=== PATIENT | female | born 1950 | race Asian ===

== ENCOUNTER 2018-07-21 21:24 | Inpatient (IN) | payer MEDICAID, SELFPAY ==
[2018-07-21] MEDS ORDERED: Nitroglycerin 100MG/250ML BOT 250 ML ONE (21:44)
[2018-07-21] MEDS ORDERED: Verapamil 5 MG/2 ML VIAL ONE (21:44)
[2018-07-21] MEDS ORDERED: Adenosine 6 MG/2 ML VIAL ONE (21:44)
[2018-07-21] MEDS ORDERED: Heparin 10,000 UNITS/1 ML VIAL ONE (21:44)
[2018-07-21] MEDS ORDERED: TICAGRELOR 90 MG TABLET ONE (22:18)
[2018-07-21] MEDS ORDERED: Clopidogrel Bisulfate 300 MG TAB ONE (22:18)
[2018-07-21] MEDS ORDERED: Fentanyl 100 MCG/2 ML VIAL ONE (22:18)
[2018-07-21] MEDS ORDERED: Heparin 0 ML ONE (22:25)
[2018-07-21] MEDS ORDERED: Nitroglycerin 0.4 MG TAB (25 Tab Bottle) SL PRN (22:30)
[2018-07-21] MEDS ORDERED: Sodium Chloride 0.9% 1,000 ML IV SCH (22:30)
[2018-07-21] MEDS ORDERED: Morphine 4 MG/ML VIAL SLOW IVP PRN (23:26)
[2018-07-21] MEDS ORDERED: Fentanyl 100 MCG/2 ML VIAL SLOW IVP SCH (23:30)
[2018-07-21] MEDS: Ondansetron PF 4 MG/2 ML Vial IVP PRN (23:32)
--- NOTE | 2018-07-21 23:54 | HP ---
CHIEF COMPLAINT: Chest pain. HISTORY OF PRESENT ILLNESS: Ms. Shepard is a 67-year-old [place] female, who comes to the [place] ER for chest pain. She had an EKG and was found to have inferior ST-elevation [place], so she was transferred emergently to the [facility] for intervention. She underwent emergent heart catheterization that showed an occluded left circumflex. This was opened and stented with a bare-metal stent. She had residual severe LAD disease. She speaks Andorran only. With the help of a cia agent, we were able to get history. She started having pain yesterday, but the pain really got worse this morning at 7:00 a.m. She has had pain all day until she presented this evening to the ER in [place]. She had nausea and vomited once before showing to the ER, but has not had any nausea since. Currently, she is still having chest pain about 7/10 before her intervention, much better now. She recently was seen by her PCP, who started her on insulin, had an allergic reaction, started swelling up on her face due to the insulin she thinks and this was stopped. Her sugar levels are high. PAST MEDICAL HISTORY: 1. Hypertension. 2. Hyperlipidemia. 3. Type 2 diabetes. PAST SURGICAL HISTORY: None. OUTPATIENT MEDICATIONS: Include; 1. Metformin 1000 mg p.o. b.i.d. 2. Glimepiride 8 mg a day. 3. Atorvastatin 40 mg at bedtime. 4. Azithromycin given to her recently for an upper respiratory infection. ALLERGIES: LANTUS. SOCIAL HISTORY: No alcohol, tobacco, or drugs. REVIEW OF SYSTEMS: Negative unless stated in the history of present illness. PHYSICAL EXAMINATION: VITAL SIGNS: Temperature 97.2, blood pressure 118/64, pulse 70, respiratory rate 18, and sat 98% on 2 L nasal cannula. GENERAL: Awake and alert. HEENT: Normocephalic and atraumatic. NECK: Supple. LUNGS: Clear. CARDIOVASCULAR: S1 and S2. No S3 or S4. No murmurs. ABDOMEN: Soft. Positive bowel sounds. EXTREMITIES: No edema. SKIN: Warm and dry. LABORATORY DATA: Laboratory work was reviewed. CBC with a white count of 14, hemoglobin of 12, hematocrit of 39, and platelet count of 248. Coags were unremarkable. Chemistry was reviewed. Her initial troponin was already at 10 with a CK-MB of 17. Her creatinine was 1.31 with GFR of 40, glucose was 391, sodium of 131, potassium of 4.2, chloride of 91, carbon dioxide of 17, anion gap of 27, BUN of 27, albumin of 3.8. EKG was reviewed, inferior elevations as well as anterolateral elevations with reciprocal depressions. Chest x-ray showed pulmonary venous engorgement suggestive of CHF. Small left pleural effusion. ASSESSMENT AND PLAN: 1. Acute inferior lateral ST-elevation myocardial infarction. 2. Type 2 diabetes. 3. Hyperlipidemia. 4. Hypertension. PLAN: 1. Status post bare-metal stent to a circumflex. Very small artery. She has residual LAD disease that will have to be treated, eventually may be able to treat it with stenting. 2. Dual-antiplatelet therapy with Plavix and aspirin for at least 1 month. 3. High dose statin. We will increase her Lipitor to 80 mg a day. 4. We will add TAMY inhibitor and beta blockers as blood pressure allows for next few days. 5. Bedrest and ambulation. 6. Pull the sheath once ACT is under 170. 7. We will admit to the ICU. 8. PPI for stress ulcer prophylaxis. 9. Full code. 10. Disposition, pending clinical evolution. Job ID: [id number]
[2018-07-22 00:05] LABS: Troponin I 14.706 ng/mL (< 0.028)
[2018-07-22 00:06] LABS: CKMB 26.7 ng/mL (0-6.6)
[2018-07-22 05:28] LABS: #Lymphocytes 1.1 thou/uL (1.20-3.40); #Monocytes 1.1 thou/uL (0.11-0.59); #Neutrophils 14.2 thou/uL (1.40-6.50); %Basophils 0.1 % (0.0-1.0); %Eosinophils 0.1 % (0.0-10.0); %Lymphocytes 6.7 % (21.0-51.0); %Monocytes 6.5 % (0.0-10.0); %Neutrophils 86.7 % (42.0-75.0); Hemoglobin 12.6 g/dL (12.0-16.0); Mean Corpuscular HGB CONC 32.8 g/dL (32.0-36.0); Mean Corpuscular Hemoglobin 29.8 pg (27.0-31.0); Mean Corpuscular Volume 90.7 fL (78.0-98.0); Mean Platelet Volume 8.7 fL (7.4-10.4); Platelet Count 261 thou/uL (130-400); RBC Distribution Width 11.8 % (11.5-14.5); Red Blood Cell (RBC) Count 4.23 mill/uL (4.20-5.40); White Blood Cell (WBC) Count 16.3 thou/uL (4.8-10.8)
[2018-07-22 05:49] LABS: ALT (SGPT) 20 U/L (8-55); AST (SGOT) 75 U/L (5-34); Albumin 3.6 g/dL (3.4-4.8); Alkaline Phosphatase 78 U/L (40-150); Anion Gap 26 mmol/L (10-20); BUN (Urea Nitrogen) 32 mg/dL (9.8-20.1); Bilirubin, Total 0.4 mg/dL (0.2-1.2); Calc. Creatinine Clearance 36 mL/min (70-130); Calcium 9.6 mg/dL (7.8-10.44); Carbon Dioxide 17 mmol/L (23-31); Cardiac Risk 2.7 (Less than 4.5); Chloride 94 mmol/L (98-107); Cholesterol 125 mg/dl (< 200 Desired); Estimated GFR-MDRD 37; Globulin 3.8 g/dL (2.4-3.5); Glucose 404 mg/dL (80-115); HDL Cholesterol 46 mg/dL (>60 Neg Risk); LDL Cholesterol, Calculated 61 mg/dL; Potassium 4.6 mmol/L (3.5-5.1); Protein, Total 7.4 g/dL (6.0-8.3); Sodium 132 mmol/L (136-145); Triglycerides 88 mg/dL (Less than 150)
[2018-07-22 05:56] LABS: CKMB 45.2 ng/mL (0-6.6); Troponin I 23.466 ng/mL (< 0.028)
[2018-07-22] MEDS: Clopidogrel Bisulfate 75 MG TAB PO SCH (08:12)
[2018-07-22] MEDS: Aspirin Chewable 81 MG TAB PO SCH (08:12)
[2018-07-22] MEDS ORDERED: Dextrose 5% in Water 1,000 ML IV PRN (08:38)
[2018-07-22] MEDS ORDERED: Dextrose 50% Abboject 50 ML SYRINGE SLOW IVP PRN (08:38)
[2018-07-22] MEDS ORDERED: Furosemide 40 MG/4 ML VIAL SLOW IVP SCH ×2 (08:45→16:00)
[2018-07-22] MEDS ORDERED: Prevnar 13-Val Conj/PF 0.5 ML SYRINGE IM ONE (09:00)
[2018-07-22] MEDS: Insulin Regular 300 UNITS/3 ML VIAL SC PRN ×3 (09:05→21:48)
--- NOTE | 2018-07-22 12:49 | PDOC.CTH ---
Cardiology Progress Note - Subjective Doing better. Still has pain on her chest. SOB is still present, has cough with laying down on her back. Right groin without issues. Daughter in room serves as specialty food products supervisor for now. - Objective Vital Signs Temp Pulse Resp BP Pulse Ox 07/22/18 11:45 98.1 F 75 16 137/82 92 L 07/22/18 08:00 93 L 07/22/18 07:00 98 F 07/22/18 03:00 97.8 F Weight 132 lb 4.438 oz 07/21/18 07/22/18 07/23/18 06:59 06:59 06:59 Intake Total 538 400 Output Total 450 450 Balance 88 -50 - Physical Examination General/Neuro: alert & oriented x3, NAD Neck: no JVD present Lungs: CTA, unlabored respirations Heart: RRR Abdomen: NT/ND Extremities: other: (no edema) - Telemetry Telemetry Rhythm: NSR - Labs Result Diagrams: 07/22/18 05:06 07/22/18 05:06 Troponin/CKMB CK-MB (CK-2) 45.2 ng/mL (0-6.6) H* 07/22/18 05:06 Troponin I 23.466 ng/mL (< 0.028) H* 07/22/18 05:06 - Assessment/Plan 1. Acute inferolateral STEMI, late presentation. 2. Diabetes poorly controlled. 3. HTN 4. HLP. 5. PATI on CKD. PLAN: - Insulin sliding scale. - Will give once dose IV lasix. - Continue aspirin, plaix and high dose statins. - Will start low dose coreg - ACEI once creatinine starts to improve. - Will get HgA1c
[2018-07-22 13:40] LABS: Hemoglobin A1c 15.3 % (4.0-6.0)
[2018-07-22] MEDS: Atorvastatin Calcium 40 MG TAB PO SCH (21:04)
--- NOTE | 2018-07-22 21:23 | EKG ---
Test Reason : Blood Pressure : / mmHG Vent. Rate : 082 BPM Atrial Rate : 082 BPM P-R Int : 134 ms QRS Dur : 084 ms QT Int : 412 ms P-R-T Axes : 048 031 005 degrees QTc Int : 481 ms Normal sinus rhythm Inferior infarct , possibly acute Anterolateral injury pattern * ACUTE AL * Abnormal ECG No previous ECGs available Confirmed by YULISSA NAGEL, DR. Shaikh ([id number]) on 07/22/2018 9:23:20 PM Referred By: PRECIOUS Confirmed By:DR. Hawa DUENAS MD
[2018-07-23] MEDS ORDERED: Digoxin 0.5 MG/2 ML AMP ONE (02:48)
[2018-07-23] MEDS ORDERED: Digoxin 0.5 MG/2 ML AMP SLOW IVP SCH (03:00)
[2018-07-23] MEDS ORDERED: Diltiazem HCl 125 MG, Admixture Fee 1 EACH in Sodium Chloride 0.9% 100 ML IVPB SCH (03:00)
[2018-07-23 05:36] LABS: #Neutrophils 10.4 thou/uL (1.40-6.50); %Eosinophils 0.1 % (0.0-10.0); %Lymphocytes 8.3 % (21.0-51.0); %Monocytes 8.1 % (0.0-10.0); %Neutrophils 83.5 % (42.0-75.0); Hemoglobin 12.1 g/dL (12.0-16.0); Mean Corpuscular HGB CONC 33.4 g/dL (32.0-36.0); Mean Corpuscular Hemoglobin 30.1 pg (27.0-31.0); Mean Platelet Volume 8.9 fL (7.4-10.4); Platelet Count 251 thou/uL (130-400); RBC Distribution Width 11.7 % (11.5-14.5); Red Blood Cell (RBC) Count 4.01 mill/uL (4.20-5.40); White Blood Cell (WBC) Count 12.5 thou/uL (4.8-10.8)
[2018-07-23 05:53] LABS: Anion Gap 18 mmol/L (10-20); BUN (Urea Nitrogen) 48 mg/dL (9.8-20.1); Calc. Creatinine Clearance 27 mL/min (70-130); Calcium 8.9 mg/dL (7.8-10.44); Carbon Dioxide 20 mmol/L (23-31); Chloride 93 mmol/L (98-107); Estimated GFR-MDRD 27; Glucose 360 mg/dL (80-115); Potassium 3.6 mmol/L (3.5-5.1); Sodium 127 mmol/L (136-145)
[2018-07-23] MEDS: Clopidogrel Bisulfate 75 MG TAB PO SCH (09:55)
[2018-07-23] MEDS: Aspirin Chewable 81 MG TAB PO SCH (09:55)
[2018-07-23] MEDS: Insulin Regular 300 UNITS/3 ML VIAL SC PRN ×4 (09:56→21:53)
--- NOTE | 2018-07-23 14:33 | EKG ---
Test Reason : STAT Blood Pressure : / mmHG Vent. Rate : 141 BPM Atrial Rate : 107 BPM P-R Int : 000 ms QRS Dur : 094 ms QT Int : 310 ms P-R-T Axes : 000 061 -14 degrees QTc Int : 474 ms Atrial fibrillation with rapid ventricular response Inferior infarct (cited on or before 22-JUL-2018) Marked ST abnormality, possible anterior subendocardial injury ACUTE OK / STEMI Consider right ventricular involvement in acute inferior infarct Abnormal ECG When compared with ECG of 22-JUL-2018 07:33, Atrial fibrillation has replaced Sinus rhythm Vent. rate has increased BY 59 BPM Serial changes of evolving Inferior infarct Present Confirmed by YULISSA NAGEL, DR. Shaikh ([id number]) on 07/23/2018 2:33:10 PM Referred By: PRECIOUS Confirmed By:DR. Hawa DUENAS MD
--- NOTE | 2018-07-23 16:34 | PDOC.CTH ---
Cardiology Progress Note - Subjective Continues to have mild chest discomfort. Breathing better after lasix. - Objective Vital Signs Temp Pulse Resp BP Pulse Ox 07/23/18 12:58 94 L 07/23/18 12:55 97.0 F L 74 16 131/65 89 L 07/23/18 09:54 98.9 F 71 16 122/58 L 98 Weight 131 lb 4.438 oz 07/22/18 07/23/18 07/24/18 06:59 06:59 06:59 Intake Total 538 1210 Output Total 450 1100 Balance 88 110 - Physical Examination General/Neuro: NAD Neck: no JVD present Lungs: unlabored respirations Heart: RRR Abdomen: NT/ND Extremities: other: (no edema) - Telemetry Telemetry Rhythm: NSR - Labs Result Diagrams: 07/23/18 05:09 07/23/18 05:09 Troponin/CKMB CK-MB (CK-2) 45.2 ng/mL (0-6.6) H* 07/22/18 05:06 Troponin I 23.466 ng/mL (< 0.028) H* 07/22/18 05:06 - Assessment/Plan 1. Acute inferolateral STEMI, late presentation. 2. Diabetes poorly controlled. 3. HTN 4. HLP. 5. PATI on CKD. 6. Ischemic CM EF at 35-40% 7. Paroxysmal afib post [place]. 8. Hyponatremia, likely dilutional from CHF. PLAN: - Insulin sliding scale. - Continue aspirin, plavix, high dose statins, coreg - ACEI once creatinine starts to improve. - HgA1c at 15, will increase Insulin sliding scale to high dose and add a long acting. She had a reaction to Lantus will use Levemir. - One more dose IV lasix. - Remain in Tele. - Will switch amio to PO.
[2018-07-23] MEDS ORDERED: Furosemide 40 MG/4 ML VIAL SLOW IVP SCH (16:45)
[2018-07-23] MEDS: Ondansetron PF 4 MG/2 ML Vial IVP PRN ×2 (16:53→21:54)
[2018-07-23] MEDS ORDERED: Insulin Glargine 10 UNITS in Pre-Filled Syringe SC SCH (21:00)
[2018-07-23] MEDS: Amiodarone 200 MG TAB PO SCH (21:51)
[2018-07-23] MEDS: Atorvastatin Calcium 40 MG TAB PO SCH (21:51)
[2018-07-23] MEDS: traMADol HCl 50 MG TAB PO PRN (21:51)
[2018-07-23] MEDS: Metoprolol Tartrate 25 MG TAB PO SCH (21:53)
[2018-07-24 05:29] LABS: #Lymphocytes 1.5 thou/uL (1.20-3.40); #Monocytes 1.1 thou/uL (0.11-0.59); #Neutrophils 6.6 thou/uL (1.40-6.50); %Basophils 0.3 % (0.0-1.0); %Eosinophils 0.3 % (0.0-10.0); %Lymphocytes 15.9 % (21.0-51.0); %Monocytes 12.1 % (0.0-10.0); %Neutrophils 71.4 % (42.0-75.0); Hemoglobin 13.1 g/dL (12.0-16.0); Mean Corpuscular HGB CONC 32.3 g/dL (32.0-36.0); Mean Corpuscular Hemoglobin 29.3 pg (27.0-31.0); Mean Corpuscular Volume 90.5 fL (78.0-98.0); Mean Platelet Volume 8.6 fL (7.4-10.4); Platelet Count 291 thou/uL (130-400); RBC Distribution Width 11.7 % (11.5-14.5); Red Blood Cell (RBC) Count 4.48 mill/uL (4.20-5.40); White Blood Cell (WBC) Count 9.2 thou/uL (4.8-10.8)
[2018-07-24 05:49] LABS: Anion Gap 18 mmol/L (10-20); BUN (Urea Nitrogen) 52 mg/dL (9.8-20.1); Calc. Creatinine Clearance 31 mL/min (70-130); Calcium 8.9 mg/dL (7.8-10.44); Carbon Dioxide 21 mmol/L (23-31); Chloride 91 mmol/L (98-107); Estimated GFR-MDRD 32; Glucose 237 mg/dL (80-115); Potassium 3.3 mmol/L (3.5-5.1); Sodium 127 mmol/L (136-145)
[2018-07-24] MEDS: Amiodarone 200 MG TAB PO SCH ×2 (10:55→22:02)
[2018-07-24] MEDS: Clopidogrel Bisulfate 75 MG TAB PO SCH (10:55)
[2018-07-24] MEDS: Aspirin Chewable 81 MG TAB PO SCH (10:55)
[2018-07-24] MEDS: Metoprolol Tartrate 25 MG TAB PO SCH ×2 (10:56→22:02)
[2018-07-24] MEDS: Insulin Regular 300 UNITS/3 ML VIAL SC PRN (11:44)
--- NOTE | 2018-07-24 14:11 | PDOC.CTH ---
Cardiology Progress Note - Subjective Patient lying in bed. Complaint of dizziness when standing at times. - Objective Vital Signs Temp Pulse Pulse Pulse Resp BP BP 07/24/18 13:06 68 62 130/60 126/64 07/24/18 08:00 97.6 F 67 18 07/24/18 04:00 97.2 F L 56 L 17 BP BP Pulse Ox Pulse Ox Pulse Ox 07/24/18 13:06 97 98 07/24/18 08:00 112/56 L 98 07/24/18 04:00 119/69 99 Weight 131 lb 3.2 oz 07/23/18 07/24/18 07/25/18 06:59 06:59 06:59 Intake Total 1210 1087 Output Total 1100 1750 Balance 110 -663 - Physical Examination General/Neuro: alert & oriented x3 Neck: no JVD present Lungs: CTA Heart: RRR Abdomen: NT/ND - Telemetry Telemetry Rhythm: SR - Labs Result Diagrams: 07/24/18 05:04 07/24/18 05:04 Troponin/CKMB CK-MB (CK-2) 45.2 ng/mL (0-6.6) H* 07/22/18 05:06 Troponin I 23.466 ng/mL (< 0.028) H* 07/22/18 05:06 - Assessment/Plan 1. Acute inferolateral STEMI 2. Uncontrolled DM 3. HTN 4. HLD 5. TEOFILO/CKD 6. Ischemic [employer] (35-40%) 7. Paroxysmal afib post [place] - in NSR on Amio 8. Hyponatremia (secondary to volume overload) Overall slow progress. Dizziness could be orthostatic in nature. Continue to monitor. Repeat BNP in AM. May need additional lasix. D/W family at bedside who acted as stretch press operator. Pt seen and examined. C/o back pain. On CV meds for secondary prevention. Keep till thursday. SOund consulted for DM
[2018-07-24] MEDS ORDERED: HumaLOG 300 UNITS/3 ML VIAL SC SCH (15:00)
[2018-07-24] MEDS: HumaLOG 300 UNITS/3 ML VIAL SC SCH ×2 (16:41→17:29)
[2018-07-24] MEDS ORDERED: NPH, Human Insulin Isophane 300 UNIT/3 ML VIAL SC SCH (17:00)
[2018-07-24] MEDS: HumuLIN 70/30 (300 UNITS/3 ML VIAL) SC SCH ×2 (17:28→17:36)
[2018-07-24] MEDS ORDERED: Insulin Glargine 15 UNITS in Pre-Filled Syringe 1 EACH SC SCH (21:00)
[2018-07-24] MEDS ORDERED: HumuLIN 70/30 (300 UNITS/3 ML VIAL) SC SCH (21:00)
[2018-07-24] MEDS: traMADol HCl 50 MG TAB PO PRN (22:02)
[2018-07-24] MEDS: Atorvastatin Calcium 40 MG TAB PO SCH (22:02)
[2018-07-24] MEDS: HumaLOG 300 UNITS/3 ML VIAL SC PRN (22:03)
--- NOTE | 2018-07-25 01:54 | CON ---
DATE OF CONSULTATION: 07/25/2018 SUBJECTIVE: I was called to see Ms. Shepard. Patient was having multiple runs of A-flutter and pauses. Pauses were noted at 8 seconds. She had a total of 6 pauses within 45 minutes. OBJECTIVE: VITAL SIGNS: Blood pressure 134/64, pulse 97, temperature 98.5. GENERAL: Negative fatigue, weakness, weight loss, fevers or chills. HEENT: Eyes: Negative blurry vision, double vision, loss of vision. Negative tinnitus, hearing loss, sore throat, bloody nose or drainage. PULMONARY: Negative shortness of breath, dyspnea on exertion, cough or congestion. CARDIOVASCULAR: Negative history of heart murmur, PND, orthopnea, fluttering or palpitations. GASTROINTESTINAL: Negative constipation, diarrhea, melena, hematochezia or abdominal pain. GENITOURINARY: Negative dysuria, polyuria, hematuria, difficulty starting/stopping flow. MUSCULOSKELETAL: Negative muscle aches/pains, joint pain, joint swelling. PVD: Negative claudication, calf or buttock pain, hair loss on limbs. NEUROLOGIC: Negative lightheadedness, dizziness, syncope, loss of sensation. PSYCHIATRIC: Negative depression, anxiety, panic attacks, or paranoia. ENDOCRINE: Negative hair loss, coarse skin or temperature intolerance. IMPRESSION: 1. Sick sinus syndrome. 2. Recent myocardial infarction. 3. Significant pauses. RECOMMENDATIONS: At this point, would recommend temporary pacemaker. I am concerned about continuing continued pauses. She received metoprolol for a recent ID in addition to amiodarone for recent atrial fibrillation . At this point, she is in A-flutter. She would be given dopamine and dobutamine. She will likely have worsening A-flutter. We will therefore proceed with a temporary pacemaker placement. The branch credit counselor phone was not available. Ms. Shepard is Trin[place]. This was not felt to be elected, but felt to be urgent. I did speak with her daughter and discussed the procedure in full detail. She understands. We discussed the risks and benefits of proceeding versus waiting. She has opted to proceed. Risks included, but not limited to the following: , stroke, ID, need for emergency surgery, loss of limb, bleeding, infection, as well as perforation of the heart. All questions answered. Given the above, the patient's family agreed to proceed above procedure. Job ID: [id number]
[2018-07-25 05:27] LABS: #Eosinphils 0.1 thou/uL (0.0-0.7); #Monocytes 0.7 thou/uL (0.11-0.59); #Neutrophils 6.3 thou/uL (1.40-6.50); %Basophils 0.5 % (0.0-1.0); %Eosinophils 0.8 % (0.0-10.0); %Lymphocytes 12.2 % (21.0-51.0); %Monocytes 8.8 % (0.0-10.0); %Neutrophils 77.7 % (42.0-75.0); Hemoglobin 11.5 g/dL (12.0-16.0); Mean Corpuscular HGB CONC 32.7 g/dL (32.0-36.0); Mean Corpuscular Hemoglobin 29.6 pg (27.0-31.0); Mean Corpuscular Volume 90.5 fL (78.0-98.0); Mean Platelet Volume 8.5 fL (7.4-10.4); Platelet Count 307 thou/uL (130-400); RBC Distribution Width 11.6 % (11.5-14.5); Red Blood Cell (RBC) Count 3.89 mill/uL (4.20-5.40); White Blood Cell (WBC) Count 8.2 thou/uL (4.8-10.8)
[2018-07-25 05:39] LABS: Anion Gap 13 mmol/L (10-20); BUN (Urea Nitrogen) 47 mg/dL (9.8-20.1); Calc. Creatinine Clearance 38 mL/min (70-130); Calcium 8.7 mg/dL (7.8-10.44); Carbon Dioxide 26 mmol/L (23-31); Chloride 91 mmol/L (98-107); Estimated GFR-MDRD 40; Glucose 244 mg/dL (80-115); Potassium 3.2 mmol/L (3.5-5.1); Sodium 127 mmol/L (136-145)
--- NOTE | 2018-07-25 07:25 | PDOC.PN ---
- Subjective Encounter Start Date: 07/24/18 Encounter Start Time: 10:30 Subjective: pt up in bed no complains, we were consulted for DM managment -: pt does not speak Faroese, used short order cook phone since pt has a listed -: allergy to insulin. Pt states she did not know the kind of insulin but that was confirmed with family. - Objective Vital Signs & Weight: Vital Signs (12 hours) Temp Pulse Resp BP BP Pulse Ox 07/25/18 04:00 97.8 F 07/25/18 03:00 50 L 17 114/59 L 99 07/25/18 02:45 51 L 17 105/60 98 07/25/18 02:30 54 L 21 H 118/62 100 07/25/18 02:15 97.6 F 53 L 23 H 115/56 L 99 07/25/18 02:00 100 07/25/18 00:50 121/68 07/24/18 23:52 109/76 07/24/18 23:25 103/60 07/24/18 19:25 98.5 F 97 18 134/62 98 Weight Weight 128 lb 11.999 oz Most Recent Monitor Data Heart Rate from ECG 51 NIBP 117/60 NIBP BP-Mean 79 Respiration from ECG 18 SpO2 100 I&O: 07/24/18 07/25/18 07/26/18 06:59 06:59 06:59 Intake Total 1087 Output Total 1750 220 Balance -663 -220 Result Diagrams: 07/25/18 04:37 07/25/18 04:37 Additional Labs: Accuchecks 07/25/18 07/24/18 07/24/18 06:31 20:26 17:06 POC Glucose 265 H 308 H 321 H 07/24/18 07/24/18 11:21 05:52 POC Glucose 407 H 266 H Phys Exam - Physical Examination Neck: no nodes, no JVD, supple, full ROM mild crackles to bases Cardiovascular: RRR, no significant murmur, no rub, gallop, irregular Gastrointestinal: soft, non-tender, no distention, positive bowel sounds Musculoskeletal: edema present Dx/Plan (1) Diabetes Code(s): E11.9 - TYPE 2 DIABETES MELLITUS WITHOUT COMPLICATIONS Status: Acute (2) CAD (coronary artery disease) Code(s): I25.10 - ATHSCL HEART DISEASE OF [place] CORONARY ARTERY W/O ANG PCTRS Status: Acute - Plan will start pt on humulin N 70/30 and moderate dose ss -: her hbg alc is 15. she is allergic to lantus * . Review of Systems - Review of Systems Cardiovascular: negative: chest pain, palpitations, orthopnea, paroxysmal nocturnal dyspnea, edema, light headedness, other Gastrointestinal: negative: Nausea, Vomiting, Abdominal Pain, Diarrhea, Constipation, Melena, Hematochezia, Other Genitourinary: negative: Dysuria, Frequency, Incontinence, Hematuria, Retention , Other Musculoskeletal: negative: Neck Pain, Shoulder Pain, Arm Pain, Back Pain, Hand Pain, Leg Pain, Foot Pain, Other - Medications/Allergies Allergies/Adverse Reactions: Allergies Allergy/AdvReac Type Severity Reaction Status Date / Time insulin glargine Allergy Verified 07/22/18 01:11 [From Lantus U-100 Insulin] Medications: Current Medications Amiodarone HCl (Cordarone) 400 mg PO BID [facility] Aspirin (Aspirin Chewable) 81 mg PO DAILY [facility] Last Admin: 07/24/18 10:55 Dose: 81 mg Atorvastatin Calcium (Lipitor) 80 mg PO [facility] Last Admin: 07/24/18 22:02 Dose: 80 mg Clopidogrel Bisulfate (Plavix) 75 mg PO DAILY [facility] Last Admin: 07/24/18 10:55 Dose: 75 mg Dextrose/Water (Dextrose 50%) 25 gm SLOW IVP PRN PRN PRN Reason: Hypoglycemia Glucagon (Glucagon) 1 mg IM PRN PRN PRN Reason: Hypoglycemia Dextrose/Water (D5w) 1,000 mls @ 0 mls/hr IV .Q0M PRN PRN Reason: Hypoglycemia Insulin Glargine 15 units/ (Miscellaneous Medication) 0.15 mls @ 0 mls/hr SC HS [facility] Insulin Human Isoph/Insulin Regular (Humulin 70/30) 12 units SC BID-AC [facility] Insulin Human Lispro (Humalog) 0 units SC .MODERATE SLIDING SC PRN PRN Reason: Moderate Correctional Scale Last Admin: 07/24/18 22:03 Dose: 8 unit Insulin Human Lispro (Humalog) 5 units SC TID[facility] Last Admin: 07/24/18 17:29 Dose: 5 unit Metoprolol Tartrate (Lopressor) 25 mg PO BID [facility] Morphine Sulfate (Morphine) 1 mg SLOW IVP Q2H PRN PRN Reason: Pain Last Admin: 07/22/18 03:30 Dose: 1 mg Ondansetron HCl (Zofran) 4 mg IVP Q4H PRN PRN Reason: Nausea/Vomiting Last Admin: 07/23/18 21:54 Dose: 4 mg Sodium Chloride (Flush - Normal Saline) 10 ml IVF Q12HR RIGOBERTO Last Admin: 07/24/18 22:09 Dose: Not Given Sodium Chloride (Flush - Normal Saline) 10 ml IVF PRN PRN PRN Reason: Saline Flush Last Admin: 07/23/18 02:55 Dose: 10 ml Tramadol HCl (Ultram) 50 mg PO Q4H PRN PRN Reason: Chest Pain Last Admin: 07/24/18 22:02 Dose: 50 mg
[2018-07-25] MEDS ORDERED: HumuLIN 70/30 (300 UNITS/3 ML VIAL) SC SCH (07:30)
[2018-07-25] MEDS: HumuLIN 70/30 (300 UNITS/3 ML VIAL) SC SCH ×2 (10:03→16:43)
[2018-07-25] MEDS: Clopidogrel Bisulfate 75 MG TAB PO SCH (10:06)
[2018-07-25] MEDS: Aspirin Chewable 81 MG TAB PO SCH (10:06)
[2018-07-25] MEDS: Amiodarone 200 MG TAB PO SCH ×2 (10:06→21:03)
[2018-07-25] MEDS: Metoprolol Tartrate 25 MG TAB PO SCH ×2 (10:06→21:03)
[2018-07-25] MEDS: HumaLOG 300 UNITS/3 ML VIAL SC PRN ×2 (11:36→16:44)
--- NOTE | 2018-07-25 16:25 | PRG ---
DATE OF SERVICE: 07/25/2018 SUBJECTIVE: The patient is seen and examined at the bedside. She is in CCU bed number 8. There is a language barrier. She does not speak Persian. The patient was moved to this area after she had multiple quite long pauses on her cardiac function. She is on external pacer now set up at 40, but her pulse is above 50. OBJECTIVE: VITAL SIGNS: Blood pressure is 118/60, pulse is 54, respiratory rate is 18, O2 saturation is 98% on room air, and temperature is 98. HEENT: Head is atraumatic and normocephalic. Eyes are responding to light properly in terms of constriction of the pupils. Sclerae are nonicteric. Oral mucosa is moist. NECK: Supple. LUNGS: Clear. HEART: S1, S2. Regular, bradycardic. No S3. No S4. ABDOMEN: Soft, nontender. EXTREMITIES: No clubbing, cyanosis, or edema. NEUROLOGICAL: She seems to be following what she is showed to follow, and she is able to move her all 4 extremities. LABORATORY DATA: Labs showed white count of 8.2, hemoglobin 11.5, hematocrit 35.2, platelet count is 307. Sodium 127, potassium 3.2, chloride 91, BUN 47, creatinine 1.32, glycemia is ranging from 265 to 407. Microbiology none. IMPRESSION: 1. Sick sinus syndrome. The patient is on external pacer in case she gets too bradycardic. 2. Recent myocardial infarction. 3. Diabetes mellitus. Her glycemia was up to 400 yesterday. She was started on insulin 70/[address] Arita, twice a day, and her glycemia is gradually coming down, it is 265 and she had 1 dose of insulin 70/30. She is going to have another one tonight, so this should get us below 200 in the next day or two. 4. Hypokalemia, to be replaced. 5. Hyponatremia. We will obtain urine lytes and hypo-osmolality panel on blood and the urine to get more information about the status on her hyponatremia. Job ID: [id number]
[2018-07-25] MEDS: Atorvastatin Calcium 40 MG TAB PO SCH (21:03)
[2018-07-25 21:36] LABS: Potassium, Urine 28.3 mmol/L; Sodium, Urine Less than 20 mmol/L (Not Available)
[2018-07-26 05:50] LABS: #Eosinphils 0.1 thou/uL (0.0-0.7); #Lymphocytes 2.3 thou/uL (1.20-3.40); #Neutrophils 5.7 thou/uL (1.40-6.50); %Basophils 0.5 % (0.0-1.0); %Eosinophils 0.7 % (0.0-10.0); %Lymphocytes 24.9 % (21.0-51.0); %Monocytes 11.4 % (0.0-10.0); %Neutrophils 62.5 % (42.0-75.0); Mean Corpuscular HGB CONC 33.2 g/dL (32.0-36.0); Mean Corpuscular Hemoglobin 29.9 pg (27.0-31.0); Mean Corpuscular Volume 90.1 fL (78.0-98.0); Mean Platelet Volume 8.2 fL (7.4-10.4); Platelet Count 349 thou/uL (130-400); RBC Distribution Width 11.6 % (11.5-14.5); Red Blood Cell (RBC) Count 4.02 mill/uL (4.20-5.40); White Blood Cell (WBC) Count 9.1 thou/uL (4.8-10.8)
[2018-07-26 06:19] LABS: Anion Gap 12 mmol/L (10-20); BUN (Urea Nitrogen) 35 mg/dL (9.8-20.1); Calc. Creatinine Clearance 47 mL/min (70-130); Calcium 9.1 mg/dL (7.8-10.44); Carbon Dioxide 30 mmol/L (23-31); Chloride 93 mmol/L (98-107); Estimated GFR-MDRD 53; Glucose 115 mg/dL (80-115); Potassium 3.1 mmol/L (3.5-5.1); Sodium 132 mmol/L (136-145)
[2018-07-26 06:25] VITALS: BMI 27.1
[2018-07-26] MEDS: HumuLIN 70/30 (300 UNITS/3 ML VIAL) SC SCH ×2 (08:34→16:24)
[2018-07-26] MEDS: Aspirin Chewable 81 MG TAB PO SCH (08:42)
[2018-07-26] MEDS: Clopidogrel Bisulfate 75 MG TAB PO SCH (08:43)
[2018-07-26] MEDS: Metoprolol Tartrate 25 MG TAB PO SCH ×2 (08:43→09:25)
[2018-07-26] MEDS: Amiodarone 200 MG TAB PO SCH ×2 (08:43→10:02)
--- NOTE | 2018-07-26 09:20 | RAD ---
FRadiograph chest one view: 07/26/2018 at 9:07 AM HISTORY: Follow-up congestive heart failure in 68-year-old female. COMPARISON: 07/21/2018 FINDINGS: The cardiomegaly is unchanged. There is pulmonary venous engorgement. Diffusely prominent interstitia l markings. The interstitium is difficult to compare with the prior study because the current study i s overexposed. No pneumothorax. There may be very small bilateral pleural effusions. There is probabl y no major interval change overall. IMPRESSION: Mild congestive heart failure, probably unchanged.
[2018-07-26] MEDS: HumaLOG 300 UNITS/3 ML VIAL SC PRN ×2 (11:09→22:58)
--- NOTE | 2018-07-26 11:28 | OP ---
DATE OF PROCEDURE: 07/25/2018 PREPROCEDURE DIAGNOSIS: Sick sinus syndrome with significant pauses up to 7.5 seconds. POSTPROCEDURE DIAGNOSIS: Sick sinus syndrome with significant pauses up to 7.5 seconds. PROCEDURE PERFORMED: Successful temporary pacemaker. DESCRIPTION OF PROCEDURE: Consent was obtained from the daughter. The patient was brought urgently for the procedure. She had 6 pauses within a 45-minute timeframe. She continued to be in atrial flutter. The patient was draped and prepped in sterile fashion. Access was then obtained in the right femoral vein under ultrasound guidance. The temporary pacemaker was placed appropriately into the left ventricle. Thresholds were noted at output of 0.2. The patient was set to 60. Job ID: [id number]
--- NOTE | 2018-07-26 13:40 | CON ---
DATE OF CONSULTATION: HISTORY OF PRESENT ILLNESS: A 68-year-old female from [facility], speaks no Armenian. History is obtained from talking to her daughter via phone. She was transferred last night to the ICU, where she had long pauses, atrial fibrillation. She has a temporary pacemaker inserted in the right groin. Pulmonary waggoner, the daughter states she is not smoke. She has had previous history of pneumonia. No TB or asthma. No coughing or wheezing. PAST MEDICAL HISTORY: Pertinent for apparently diabetes and hyperlipidemia. She sees a doctor locally. PAST SURGICAL HISTORY: Some kind of neck operation for infection. MEDICATIONS: From home includes: 1. Metformin 500 twice a day. 2. Glimepiride 8 mg a day. 3. Lipitor 40. SOCIAL HISTORY: Tobacco, none. Alcohol, none. ALLERGIES: NONE. REVIEW OF SYSTEMS: Otherwise unremarkable. PHYSICAL EXAMINATION: VITAL SIGNS: Temperature is 99, pulse 95, and blood pressure _120\76. CHEST: Decreased breath sounds. No wheezing. CARDIAC: Normal S1 and S2. No gallops or masses. LABORATORY DATA: White count 9000, hemoglobin and hematocrit of 12 and 36, platelet count normal. Lytes are normal. IMPRESSION: Status post myocardial infarction, diabetes, and high cholesterol. PLAN: Input from Cardiology. Further nutrition. Further recommendation as above. John waggoner, baseline chest x-ray. We will follow in the ICU. Supportive care PT. Consultation note, 70 minutes, 50% direct patient care. Job ID: [id number] MTDD
[2018-07-26] MEDS: Potassium Chloride 20 MEQ TAB PO SCH ×2 (14:30→18:08)
[2018-07-26] MEDS ORDERED: Furosemide 20 MG/2 ML VIAL SLOW IVP SCH (14:30)
--- NOTE | 2018-07-26 14:37 | PRG ---
DATE OF SERVICE: 07/26/2018 SUBJECTIVE: The patient is seen and examined at the bedside. She is doing quite well. She did not have any narciso episodes or requiring pacing. OBJECTIVE: VITAL SIGNS: Blood pressure is 129/66, pulse is 56, respiratory rate is 28, O2 saturation is 94% on room air. HEENT: Pupils are responding to light properly. Sclerae are nonicteric. Oral mucosa is moist. NECK: Supple. LUNGS: Clear. HEART: S1 and S2. Somewhat irregular. No S3. No S4. ABDOMEN: Soft and nontender. Bowel sounds are present. EXTREMITIES: No clubbing, cyanosis, or edema. NEUROLOGIC: She moves her all 4 extremities spontaneously. Monitoring shows occasional PVCs and sinus narciso. LABORATORY DATA: Showed sodium of 132, potassium 3.1, chloride 93, CO2 of 30, BUN 35, creatinine 1.04, glycemia is ranging from 111 to 194. Serum osmolality is 289. Calcium 9.1. Magnesium 2.3. osmolality 652, urine potassium 28.3, and urine sodium 20. IMPRESSION: 1. Sick sinus syndrome, status post temporary pacemaker placement, and her amiodarone and beta-shauna were stopped. 2. Recent myocardial infarction. 3. Congestive heart failure with low left ventricular ejection fraction and diastolic dysfunction. We were to give her a small dose of Lasix since her chest x-ray showed some increased congestion in her both lungs. 4. Diabetes mellitus. Her glycemia is significantly improved. 5. Hyponatremia. It is most likely related to congestive heart failure. Should be getting better with some diuretics. 6. Hypokalemia, for replacement. She will remain in the intensive care unit until we have a green light to move her by Cardiology. Job ID: [id number]
--- NOTE | 2018-07-26 18:15 | PDOC.CTH ---
Cardiology Progress Note - Subjective No new issues. She giraldo snot had any more pauses since amiodarone and BB stopped. EP consultation noted. - Objective Vital Signs Temp Pulse Ox 07/26/18 16:00 97.9 F 07/26/18 13:00 97.7 F 07/26/18 07:49 95 07/26/18 07:00 99.1 F 07/26/18 06:49 96 Weight 129 lb 10.109 oz 07/25/18 07/26/18 07/27/18 06:59 06:59 06:59 Intake Total 730 500 Output Total 850 648 0078 Balance -220 -120 -500 - Physical Examination General/Neuro: NAD Neck: no JVD present Lungs: unlabored respirations Heart: RRR Abdomen: NT/ND Extremities: other: (no edema) - Telemetry Telemetry Rhythm: NSR - Labs Result Diagrams: 07/26/18 05:03 07/26/18 05:03 Troponin/CKMB CK-MB (CK-2) 45.2 ng/mL (0-6.6) H* 07/22/18 05:06 Troponin I 23.466 ng/mL (< 0.028) H* 07/22/18 05:06 - Assessment/Plan 1. Acute inferolateral STEMI, late presentation. 2. Diabetes poorly controlled. 3. HTN 4. HLP. 5. PATI on CKD. 6. Ischemic CM EF at 35-40% 7. Paroxysmal afib post [place]. 8. Hyponatremia, likely dilutional from CHF. 9. Sinus pauses PLAN: - Continue to hold amio and BB. - EP plans on EP study. - Continue other meds. - Replace K. - Continue Insulin per IM. - Pull temporary pacer for now per EP. - Full code.
[2018-07-26] MEDS: Atorvastatin Calcium 40 MG TAB PO SCH (20:47)
[2018-07-27 05:07] LABS: Anion Gap 15 mmol/L (10-20); BUN (Urea Nitrogen) 29 mg/dL (9.8-20.1); Calc. Creatinine Clearance 51 mL/min (70-130); Calcium 8.7 mg/dL (7.8-10.44); Carbon Dioxide 28 mmol/L (23-31); Chloride 96 mmol/L (98-107); Estimated GFR-MDRD 58; Glucose 162 mg/dL (80-115); Potassium 3.9 mmol/L (3.5-5.1); Sodium 135 mmol/L (136-145)
[2018-07-27] MEDS: HumaLOG 300 UNITS/3 ML VIAL SC PRN ×2 (06:08→19:59)
[2018-07-27] MEDS: Furosemide 20 MG/2 ML VIAL SLOW IVP SCH ×2 (06:09→17:43)
[2018-07-27] MEDS: HumuLIN 70/30 (300 UNITS/3 ML VIAL) SC SCH ×2 (08:20→17:43)
[2018-07-27] MEDS: Clopidogrel Bisulfate 75 MG TAB PO SCH (08:31)
[2018-07-27] MEDS: Aspirin Chewable 81 MG TAB PO SCH (08:31)
--- NOTE | 2018-07-27 11:39 | PRG ---
DATE OF SERVICE: 07/27/2018 SUBJECTIVE: There is an cassandra consultant in the room, who is helping me to communicate with the patient. She does not have much complaints to offer. She does not have any pain. She is aware of her cardiac situation and that she had an ME. OBJECTIVE: VITAL SIGNS: Blood pressure is 97/58, pulse is 58, respiratory rate is 26, O2 saturation is 98%. HEENT: Her pupils are responding to light properly. Sclerae are nonicteric. Oral mucosa is moist. NECK: Supple. LUNGS: Breath sounds diminished at both bases with some bilateral crackles, mild. HEART: S1 and S2. No S3 gallop. ABDOMEN: Soft, nontender, nondistended. EXTREMITIES: No clubbing, cyanosis, or edema. NEUROLOGIC: She seems to be moving her all 4 extremities. There is no any motor deficits. LABORATORY DATA: Sodium of 135, potassium 3.9, chloride 96, CO2 28, BUN 29, creatinine 0.96. Glycemia is ranging from 111 to 270, magnesium 2.3, calcium 8.7. IMPRESSION: 1. Recent myocardial infarction, STEMI. 2. Sick sinus syndrome. The patient had temporary pacemaker placed, and her amiodarone and beta blockers were stopped and she does not have any pauses on her cardiac function anymore. She is scheduled for EP studies and maybe permanent pacer placed after that. 3. Congestive heart failure with low left ventricular ejection fraction and diastolic dysfunction. She is started on Lasix. Her blood pressure is running on the lower side, so we are not introducing any other agents so far. 4. Diabetes mellitus, significantly improved. 5. Hyponatremia, improved with diuretics. 6. Hypokalemia, status post replacement, improved. Job ID: [id number]
[2018-07-27] MEDS ORDERED: PROPOFOL 200 MG/20 ML VIAL ONE (12:25)
--- NOTE | 2018-07-27 12:47 | PRG ---
DATE OF SERVICE: 07/27/2018 SUBJECTIVE: This morning, she is awake, alert, responsive, in no distress. She is due for a pacemaker today. OBJECTIVE: VITAL SIGNS: Her sats are 99% on 2 L, pulse is 53, blood pressure 122/61, and respiratory rate 18. CHEST: Decreased breath sounds. No wheezing. CARDIAC: Normal S1 and S2. No gallops. ABDOMEN: No masses. DIAGNOSTIC DATA: Chest x-ray shows cardiomegaly with small pleural effusion. Her echo showed EF of about 35%. IMPRESSION: 1. Congestive heart failure, status post myocardial infarction. 2. Cardiac arrhythmias. PLAN: She has a PTCA today. Hopefully, if she is stabilized, she was transferred to the ICU. Pulmonary will follow while in the ICU. Job ID: [id number]
[2018-07-27] MEDS ORDERED: Heparin 10,000 UNITS/1 ML VIAL ONE (13:30)
[2018-07-27] MEDS ORDERED: DOPamine 400 MG/D5W 250 ML 250 ML ONE (15:44)
[2018-07-27] MEDS ORDERED: Ondansetron HCl/PF 4 MG/2 ML Vial IVP PRN (16:26)
[2018-07-27] MEDS ORDERED: Promethazine HCl 25 MG/ML VIAL IM PRN (16:26)
[2018-07-27] MEDS ORDERED: Promethazine HCl 25 MG/ML VIAL SLOW IVP PRN (16:26)
--- NOTE | 2018-07-27 17:06 | CON ---
DATE OF CONSULTATION: 07/26/2018 REASON FOR CONSULTATION: Atrial flutter. HISTORY OF PRESENT ILLNESS: Ms. Shepard is a 68-year-old [place] woman, who presented to the [facility] for chest pain. She has had a 12-lead EKG performed that suggested an inferior ST-elevation AK and she was emergently transferred to [facility] in [place] for PCI and left heart catheterization. The left heart catheterization showed an occluded left circumflex, which was revascularized with a bare metal stent. She had residual severe LAD disease. Through a box inspector, it was deciphered that she started having pain the day before, but had worsened the morning before she presented to the ER. Since her PCI, she has been kept in ICU for monitoring and is found to have paroxysmal atrial flutter prompting the EP consult. As she transitions in and out of her atrial arrhythmias, she is also seen to have substantial conversion pauses up to 8 seconds in duration that have required a temporary pacemaker. REVIEW OF SYSTEMS: A 12-point review of systems was obtained with the assessment of translation services and is negative except that listed above in the HPI. She denies any heart racing, palpitations, ongoing chest pain, pressure, syncope, near syncope, stroke, or stroke-like symptoms. She denies any history of arrhythmia issues in the past. PAST MEDICAL HISTORY: 1. Hypertension. 2. Hyperlipidemia. 3. Type 2 diabetes. 4. Coronary artery disease status post PCI (diagnosed this hospitalization). ALLERGIES: LANTUS. HOME MEDICATIONS: 1. Metformin 1000 mg p.o. b.i.d. 2. Glimepiride 8 mg daily. 3. Atorvastatin 40 mg at bedtime. 4. Azithromycin (short-term therapy). SOCIAL HISTORY: Negative for alcohol, tobacco, or illicit drug use. FAMILY HISTORY: Noncontributory. PHYSICAL EXAMINATION: VITAL SIGNS: Temperature 97.9, pulse 50, blood pressure 116/63, respirations 19, oxygen is 96% on room air. GENERAL: The patient is alert and oriented. Affect is appropriate. She speaks Emir[place] only. HEENT: She is normocephalic, atraumatic. Sclerae anicteric. EOMs intact. Oral mucosa is moist and pink with adequate dentition. NECK: Supple without jugular venous distention. LUNGS: Clear to auscultation. HEART: Rate is currently regularly regular. No significant murmur. PMI nondisplaced. ABDOMEN: Soft, nontender without palpable masses. EXTREMITIES: Warm and dry to touch without clubbing, cyanosis, or edema. NEUROLOGIC: Grossly intact and nonfocal. DATABASE: Laboratory: Hematology was reviewed and is unremarkable. Chemistry was reviewed. Potassium 3.9, creatinine 0.96, magnesium 2.3, T4 of 1.3, TSH 0.33. Echocardiogram on 07/22/2018, ejection fraction of 35% to 40%. Inferior lateral akinesis. Grade 1/3 diastolic dysfunction. Atrial size normal. Telemetry and EKG were all personally reviewed, currently reflects sinus rhythm with ST changes consistent with recent AK. She does have paroxysmal episodes of atrial flutter with variable AV conduction occasionally becoming rapid and one-to-one conduction is attempted. IMPRESSION: 1. Sick sinus syndrome with conversion pauses up to 8 seconds in duration, requiring temporary pacemaker assistance. 2. Paroxysmal atrial flutter, possibly typical in morphology. 3. Acute inferior lateral ST-elevation myocardial infarction, late presentation status post left circumflex stent, bare metal. 4. Type 2 diabetes, poorly controlled. 5. Hypertension. 6. Ischemic cardiomyopathy, ejection fraction of 35% to 40%. PLAN AND RECOMMENDATIONS: We discussed treatment options for her atrial flutter. At this point, the recommendation is to proceed with an electrophysiology study to better assess her electrical and [place] conduction system. She is having substantial pauses and may require permanent pacemaker if advanced conduction disease is seen during EP study. In addition to possible pacemaker, we will test for atrial arrhythmias and possibly proceed with ablation depending on the finding. Risks associated with ablation include hematoma bleeding at the groin site, pericardial effusion, arrhythmia issues and/or stroke. Risks associated with pacemaker insertion include pain, bruising, infection, localized swelling, pneumothorax, pericardial effusion, and cardiac arrhythmias. The patient is in agreement according to the translating services. Also recommend keeping her potassium at least 3.5 if not 4. Thank you for allowing us to participate in the care of this patient. I will proceed with scheduling the EP study and possible ablation plus or minus dual-chamber pacemaker in the near future. Job ID: [id number]
--- NOTE | 2018-07-27 17:14 | OP ---
DATE OF PROCEDURE: 07/27/2018 PROCEDURE PERFORMED: Electrophysiology study and radiofrequency ablation. REASON FOR PROCEDURE: Ms. Shepard is a 68-year-old woman, who presented with acute inferior myocardial infarction with intermittent atrial flutter, occasion of one-to-one conduction seen on x-ray, rapid rates. She was treated with amiodarone but had developed post conversion pauses up to 8 seconds, requiring temporary pacing. She is here for EP study and ablation of possible atrial flutter, which appears to be typical isthmus dependent on morphology. DESCRIPTION OF PROCEDURE: The patient received propofol by Anesthesia specialist. After adequate level of sedation achieved, the right femoral vein was prepped, draped, and anesthetized using subcutaneous lidocaine and under ultrasound guidance, the right femoral vein was cannulated x2. Two 8-Czech short sheath was introduced through which a decapolar catheter was advanced to the right atrium, right bundle, His bundle, CS and right ventricular positions. Pacing, mapping, and recording were performed throughout each location. The following findings were noted. Baseline rhythm was sinus rhythm with cycle length of 1207, HI mode 127 milliseconds, QRS 97 milliseconds, QT interval was 437 milliseconds, HV interval was 52 milliseconds. Sinus node recovery time was measured after 600 milliseconds. Overdrive pacing at 1509, corrected 302, repeated sinus node recovery time at the end of the case 1635, corrected 489 noted after 500 milliseconds overdrive pacing. The AV Wenckebach measured to be 470 milliseconds. Retrograde Wenckebach measured to be 640 milliseconds. Concentric retrograde VA conduction was noted. AV an ERP was 600/340 milliseconds with no definite jump was observed. Burst atrial pacing was inducing short atrial flutter which appears to be typical isthmus dependent in morphology, although eventually self-terminated with cycle lengths of 220 milliseconds. Due to similar findings during the clinical tachycardia, decision was made to perform a cavotricuspid isthmus ablation. During proximal CS pacing, cava tricuspid isthmus ablation was performed with a total of 19 lesion delivered with total time of 10 minutes and 53 seconds. Forty de paz energy was used. At the end of the ablation, we were able to prolong the transisthmus time to 120 milliseconds in the anterior portion of the line to 90 milliseconds in the posterior portion of the line. Possible posterior conduction could be present shortening the posterior area. The burst atrial pacing at this point did not re-injure the initially observed atrial flutter. The pacing maneuvers repeated was also not inducing the atrial arrhythmias. The ablation line rechecked and the reconnections were ablated. The cardiac silhouette did not significantly change throughout the procedure. The patient tolerated the procedure well. Sheaths were pulled in the general production laborer. No complication was noted. CONCLUSION: 1. Inducible typical appearing atrial flutter, which is self terminating. 2. Caval tricuspid isthmus ablation prolonging transisthmus time up to 120 milliseconds. 3. No inducible atrial flutter post ablation. 4. Abnormal sinus node recovery time, monitor for further bradyarrhythmias and consider pacing if that occurs. 5. Keep off amiodarone. Job ID: [id number] [facility]
--- NOTE | 2018-07-27 19:48 | PDOC.CTH ---
Cardiology Progress Note - Subjective No new issues. - Objective Vital Signs Temp Pulse Ox 07/27/18 19:01 95 07/27/18 17:35 98.7 F 07/27/18 12:00 98.2 F 07/27/18 08:00 98.4 F 96 Weight 126 lb 15.78 oz 07/26/18 07/27/18 07/28/18 06:59 06:59 06:59 Intake Total 730 500 225 Output Total 850 1550 675 Balance -120 -1050 -450 - Physical Examination General/Neuro: NAD Neck: no JVD present Lungs: CTA, unlabored respirations Heart: RRR Abdomen: NT/ND Extremities: other: (no edema) - Telemetry Telemetry Rhythm: NSR - Labs Result Diagrams: 07/26/18 05:03 07/27/18 04:08 Troponin/CKMB CK-MB (CK-2) 45.2 ng/mL (0-6.6) H* 07/22/18 05:06 Troponin I 23.466 ng/mL (< 0.028) H* 07/22/18 05:06 - Assessment/Plan 1. Acute inferolateral STEMI, late presentation. 2. Diabetes poorly controlled. 3. HTN 4. HLP. 5. PATI on CKD. 6. Ischemic CM EF at 35-40% 7. Atrial flutter 8. Hyponatremia, likely dilutional from CHF. 9. Sinus pauses PLAN: - S.P successful CT isthmus ablation. - Replace K. - Continue Insulin per IM. - Full code. - Transfer to Telemetry. - If further pauses will need a PPM.
[2018-07-27] MEDS: Atorvastatin Calcium 40 MG TAB PO SCH (19:55)
--- NOTE | 2018-07-27 22:31 | EKG ---
Test Reason : Blood Pressure : / mmHG Vent. Rate : 060 BPM Atrial Rate : 060 BPM P-R Int : 124 ms QRS Dur : 082 ms QT Int : 422 ms P-R-T Axes : 001 024 096 degrees QTc Int : 422 ms Normal sinus rhythm Inferior infarct (cited on or before 22-JUL-2018) Lateral injury pattern * ACUTE ID * Abnormal ECG When compared with ECG of 23-JUL-2018 02:19, Sinus rhythm has replaced Atrial fibrillation Vent. rate has decreased BY 81 BPM Serial changes of evolving Inferior infarct Present Confirmed by Bennie RIOS ([id number]) on 07/27/2018 10:31:11 PM Referred By: TTOTH Confirmed By:Bennie RIOS
[2018-07-28] MEDS: Furosemide 20 MG/2 ML VIAL SLOW IVP SCH ×2 (06:22→13:18)
[2018-07-28] MEDS: HumaLOG 300 UNITS/3 ML VIAL SC PRN ×2 (06:25→10:52)
[2018-07-28] MEDS: HumuLIN 70/30 (300 UNITS/3 ML VIAL) SC SCH ×2 (08:10→17:47)
--- NOTE | 2018-07-28 08:15 | PRG ---
DATE OF SERVICE: 07/28/2018 SUBJECTIVE: This morning, the patient remains in the ICU status post EP intervention, no distress. OBJECTIVE: VITAL SIGNS: Sats 95%, pulse 80, blood pressure 180/80. CHEST: Decreased breath sounds. No wheezing. CARDIAC: Normal S1 and S2. No gallops. ABDOMEN: No masses. IMPRESSION: Status post myocardial infarction, cardiomyopathy, cardiac arrhythmias, diabetes, multiple sinus pauses, status post ablation. PLAN: The patient is to continue insulin. Supportive care, PT. Eventually placement. Switch over to oral Lasix. Job ID: [id number]
[2018-07-28] MEDS: Aspirin Chewable 81 MG TAB PO SCH (08:41)
[2018-07-28] MEDS: Clopidogrel Bisulfate 75 MG TAB PO SCH (08:41)
--- NOTE | 2018-07-28 14:39 | PDOC.CTH ---
Cardiology Progress Note - Subjective EP PROGRESS NOTE: 07/28/18 Seen as followup for atrial flutter s/p EPS and CTI/RFA on 07/27/18. No new cardiac concerns or complaints since procedure on 07/27. No pain/bleeding at groin sites. Feeling well. - Objective Vital Signs Temp Pulse Pulse BP BP 07/28/18 11:00 97.3 F L 07/28/18 10:24 75 71 113/52 L 98/49 L 07/28/18 07:00 97.5 F L 07/28/18 04:00 97.9 F Weight 125 lb 14.4 oz 07/27/18 07/28/18 07/29/18 06:59 06:59 06:59 Intake Total 500 297 350 Output Total 1550 1425 335 Balance -1050 -1128 15 - Physical Examination General/Neuro: alert & oriented x3, NAD Neck: carotid US brisk, no JVD present Lungs: CTA, unlabored respirations Heart: PMI normal, RRR Abdomen: NT/ND, soft Other PE findings: bilat. groin sites stable. no bleeding/hematoma - Telemetry Telemetry Rhythm: SR - Labs Result Diagrams: 07/26/18 05:03 07/27/18 04:08 Troponin/CKMB CK-MB (CK-2) 45.2 ng/mL (0-6.6) H* 07/22/18 05:06 Troponin I 23.466 ng/mL (< 0.028) H* 07/22/18 05:06 - Assessment/Plan MPRESSION: 1. Sick sinus syndrome - conversion pauses up to 8 seconds in duration 2. Paroxysmal atrial flutter, typical -s/p CTI ablation. 3. Acute inferior lateral ST-elevation myocardial infarction -late presentation status post left circumflex stent, bare metal. 4. Type 2 diabetes, poorly controlled. 5. Hypertension. 6. Ischemic cardiomyopathy - ejection fraction of 35% to 40%. 7. CHADS2-VASC: >/=4 (age, gender, vasc. ds, HF) -On DAPT with recent PCI/BMS. Consider OAC if further atrial arrhythmias are seen. Rhythm stable post ablation. Continue DAPT with plavix and ASA. 6 week follow up with TCA will be arranged. EPS/ABLATION CONCLUSION: 1. Inducible typical appearing atrial flutter, which is self terminating. 2. Cavo-tricuspid isthmus ablation prolonging transisthmus time up to 120 milliseconds. 3. No inducible atrial flutter post ablation. 4. Abnormal sinus node recovery time, monitor for further bradyarrhythmias and consider pacing if that occurs. 5. Stop amiodarone
--- NOTE | 2018-07-28 14:45 | PDOC.PN ---
- Subjective Encounter Start Date: 07/28/18 Encounter Start Time: 14:44 Ms. Shepard, was seen today in follow-up of atrial flutter. She is post ablation, and does not have any complaints. She denies chest pain or shortness of breath. - Objective MAR Reviewed: Yes Vital Signs & Weight: Vital Signs (12 hours) Temp Pulse Pulse BP BP 07/28/18 11:00 97.3 F L 07/28/18 10:24 75 71 113/52 L 98/49 L 07/28/18 07:00 97.5 F L 07/28/18 04:00 97.9 F Weight Weight 125 lb 14.4 oz Most Recent Monitor Data Heart Rate from ECG 71 NIBP 116/69 NIBP BP-Mean 84 Respiration from ECG 27 SpO2 94 I&O: 07/27/18 07/28/18 07/29/18 06:59 06:59 06:59 Intake Total 500 297 350 Output Total 1550 1425 335 Balance -1050 -1128 15 Result Diagrams: 07/26/18 05:03 07/27/18 04:08 Additional Labs: Accuchecks 07/28/18 07/27/18 07/27/18 06:15 19:59 17:38 POC Glucose 207 H 348 H 99 Phys Exam - Physical Examination HEENT: PERRLA Respiratory: no wheezing, no rales, no rhonchi, clear to auscultation bilateral Cardiovascular: RRR, no significant murmur, no rub Gastrointestinal: soft, non-tender, no distention, positive bowel sounds Musculoskeletal: no edema, pulses present Dx/Plan (1) Sick sinus syndrome Code(s): I49.5 - SICK SINUS SYNDROME Status: Acute (2) Atrial flutter Code(s): I48.92 - UNSPECIFIED ATRIAL FLUTTER Status: Acute (3) Chronic systolic heart failure Code(s): I50.22 - CHRONIC SYSTOLIC (CONGESTIVE) HEART FAILURE Status: Chronic (4) Diabetes mellitus type 2 in nonobese Code(s): E11.9 - TYPE 2 DIABETES MELLITUS WITHOUT COMPLICATIONS Status: Chronic (5) Hypertension Code(s): I10 - ESSENTIAL (PRIMARY) HYPERTENSION Status: Chronic - Plan * Atrial Flutter- she is post ablation, and clinically stable- continue to monitor for bradycardia as per EP/Cardiology * Chronic systolic heart failure- compensated. * DM- blood glucose is a bit elevated- will continue the current dose of 70/30, as well as a SSI, and adjust as needed * HTN- blood pressure is stable
--- NOTE | 2018-07-28 17:07 | EKG ---
Test Reason : Blood Pressure : / mmHG Vent. Rate : 061 BPM Atrial Rate : 061 BPM P-R Int : 128 ms QRS Dur : 068 ms QT Int : 460 ms P-R-T Axes : 027 016 162 degrees QTc Int : 463 ms Normal sinus rhythm Inferior infarct (cited on or before 22-JUL-2018) Lateral injury pattern ACUTE SC / STEMI Abnormal ECG When compared with ECG of 27-JUL-2018 06:29, Serial changes of Inferior infarct Present Confirmed by Bennie RIOS ([id number]) on 07/28/2018 5:07:15 PM Referred By: Confirmed By:Bennie RIOS
--- NOTE | 2018-07-28 17:08 | EKG ---
Test Reason : Blood Pressure : / mmHG Vent. Rate : 070 BPM Atrial Rate : 070 BPM P-R Int : 126 ms QRS Dur : 080 ms QT Int : 410 ms P-R-T Axes : 043 038 107 degrees QTc Int : 442 ms Normal sinus rhythm Inferior infarct (cited on or before 22-JUL-2018) Lateral injury pattern * ACUTE [place] * Consider right ventricular involvement in acute inferior infarct Abnormal ECG When compared with ECG of 27-JUL-2018 17:23, (Unconfirmed) Serial changes of Inferior infarct Present Confirmed by Bennie RIOS ([id number]) on 07/28/2018 5:08:25 PM Referred By: [facility] Confirmed By:Bennie RIOS
--- NOTE | 2018-07-28 19:12 | PDOC.CTH ---
Cardiology Progress Note - Subjective No new issues. No more pauses. No chest pain. - Objective Vital Signs Temp Pulse Pulse Pulse Resp BP BP 07/28/18 15:43 99.9 F H 67 18 07/28/18 14:46 97.5 F L 66 18 07/28/18 11:00 97.3 F L 07/28/18 10:24 75 71 113/52 L 98/49 L BP Pulse Ox 07/28/18 15:43 97/51 L 92 L 07/28/18 14:46 122/58 L 93 L 07/28/18 11:00 07/28/18 10:24 Weight 125 lb 14.4 oz 07/27/18 07/28/18 07/29/18 06:59 06:59 06:59 Intake Total 500 297 950 Output Total 1550 1425 735 Balance -1050 -1128 215 - Physical Examination General/Neuro: NAD Neck: no JVD present Lungs: unlabored respirations Heart: RRR Abdomen: NT/ND Extremities: + edema B (no edema) - Telemetry Telemetry Rhythm: NSR - Labs Result Diagrams: 07/26/18 05:03 07/27/18 04:08 Troponin/CKMB CK-MB (CK-2) 45.2 ng/mL (0-6.6) H* 07/22/18 05:06 Troponin I 23.466 ng/mL (< 0.028) H* 07/22/18 05:06 - Assessment/Plan 1. Acute inferolateral STEMI, late presentation. 2. Diabetes poorly controlled. 3. HTN 4. HLP. 5. PATI on CKD. 6. Ischemic CM EF at 35-40% 7. Atrial flutter 8. Hyponatremia, likely dilutional from CHF. 9. Sinus pauses PLAN: - S/P successful isthmus ablation. - Replace K. - Continue Insulin per IM. - Full code. - No further pauses. - Home tomorrow if stable.
[2018-07-28] MEDS: Atorvastatin Calcium 40 MG TAB PO SCH (20:53)
[2018-07-28] MEDS ORDERED: HumaLOG 300 UNITS/3 ML VIAL SC PRN (21:30)
[2018-07-29] MEDS: Furosemide 20 MG/2 ML VIAL SLOW IVP SCH ×2 (06:28→14:29)
[2018-07-29] MEDS: HumuLIN 70/30 (300 UNITS/3 ML VIAL) SC SCH ×2 (08:05→19:42)
[2018-07-29] MEDS: Aspirin Chewable 81 MG TAB PO SCH (08:06)
[2018-07-29] MEDS: Clopidogrel Bisulfate 75 MG TAB PO SCH (08:06)
[2018-07-29] MEDS: HumaLOG 300 UNITS/3 ML VIAL SC PRN (12:43)
--- NOTE | 2018-07-29 13:19 | PDOC.CTH ---
Cardiology Progress Note - Subjective EP PROGRESS NOTE: 07/29/18 Seen as followup for atrial flutter s/p EPS and CTI/RFA on 07/27/18. No new cardiac concerns or complaints since procedure on 07/27. No pain/bleeding at groin sites. Feeling well. Likely DC today - Objective Vital Signs Temp Pulse Resp BP Pulse Ox 07/29/18 12:39 99.7 F H 74 20 93/52 L 96 07/29/18 07:45 99.5 F 63 20 105/55 L 96 07/29/18 04:10 99.3 F 65 20 119/61 92 L Admit Weight 132 lb 4.438 oz Weight 129 lb 11.2 oz 07/28/18 07/29/18 07/30/18 06:59 06:59 06:59 Intake Total 297 1310 Output Total 1425 1035 Balance -1128 275 - Physical Examination General/Neuro: alert & oriented x3, NAD Neck: carotid US brisk, no JVD present Lungs: CTA, unlabored respirations Heart: PMI normal, RRR Abdomen: NT/ND, soft - Telemetry Telemetry Rhythm: SR - Labs Result Diagrams: 07/26/18 05:03 07/27/18 04:08 Troponin/CKMB CK-MB (CK-2) 45.2 ng/mL (0-6.6) H* 07/22/18 05:06 Troponin I 23.466 ng/mL (< 0.028) H* 07/22/18 05:06 - Assessment/Plan IMPRESSION: 1. Sick sinus syndrome - conversion pauses up to 8 seconds in duration 2. Paroxysmal atrial flutter, typical -s/p CTI ablation. 3. Acute inferior lateral ST-elevation myocardial infarction -late presentation status post left circumflex stent, bare metal. 4. Type 2 diabetes, poorly controlled. 5. Hypertension. 6. Ischemic cardiomyopathy - ejection fraction of 35% to 40%. 7. CHADS2-VASC: >/=4 (age, gender, vasc. ds, HF) -On DAPT with recent PCI/BMS. Consider OAC if further atrial arrhythmias are seen. Rhythm stable post ablation. Continue DAPT with plavix and ASA. 6 week follow up with TCA will be arranged. OK for DC by EP EPS/ABLATION CONCLUSION: 1. Inducible typical appearing atrial flutter, which is self terminating. 2. Cavo-tricuspid isthmus ablation prolonging transisthmus time up to 120 milliseconds. 3. No inducible atrial flutter post ablation. 4. Abnormal sinus node recovery time, monitor for further bradyarrhythmias and consider pacing if that occurs. 5. Stop amiodarone
--- NOTE | 2018-07-29 15:35 | DIS ---
DATE OF ADMISSION: 07/21/2018 DATE OF DISCHARGE: 07/29/2018 DISCHARGING PHYSICIAN: Rojelio Yanez MD PRIMARY DIAGNOSES: 1. Inferolateral ST elevation myocardial infarction. 2. Atrial flutter. 3. Ischemic cardiomyopathy with ejection fraction at 35% to 40%. PROCEDURES PERFORMED: 1. Left heart catheterization. 2. Percutaneous coronary intervention to left circumflex with a bare-metal stent. 3. Temporary pacemaker placement. 4. Electrophysiology study with ablation of the AV junction for typical flutter ablation. 5. Echocardiogram. 6. Electrophysiology consultation. 7. Pulmonary/Critical Care consultation. SUMMARY: Ms. Shepard is a pleasant 68-year-old, Irish female, who comes to the hospital for chest pain. She had chest pain for a few days before presentation. She showed inferior ST elevation and was taken emergently to the catheterization lab where she was found to have an occluded left circumflex. This was ballooned and stented successfully with bare-metal stent. She has very poor distal outflow. She did well post catheterization. Chest pain was significantly resolved. A day after, she went in what appeared to be AFib and eventually became organized into atrial flutter. Whenever she would come out of the flutter, she would have these long pauses. This was while on amiodarone and beta-shauna. She had to have a temporary pacemaker placed and eventually these medications were stopped. She had an EP study where she had an ablation of typical atrial flutter and did very well afterwards, did not need any more pacing, did not have any more pauses. Her EF showed an EF of 35% to 40%, so no need for a LifeVest. She had remained stable over the last few days. She did require some dose of IV Lasix. She is being discharged home in a stable condition. DISCHARGE MEDICATIONS: 1. Aspirin 81 a day. 2. Atorvastatin 80 mg q.h.s. 3. Plavix 75 mg a day. 4. Lasix 40 mg p.o. daily p.r.n. for edema. 5. Humulin 70/30 of 15 units subcutaneous b.i.d., this is a new medication. 6. Metformin 500 mg b.i.d. 7. Stop glyburide. 8. Stop the atorvastatin at 40. She will go out on 80 mg higher dose. FOLLOWUP: Followup appointments with myself in 1 month and with EP as scheduled. Over 30 minutes was spent at bedside counseling the patient and family members for discharge. Job ID: [id number]
[2018-07-29 18:12] VITALS: BP 110/58; TEMP 99.5
--- NOTE | 2018-07-30 11:26 | PQF ---
Janee ShepardDEIDRE [id number] CLINICAL DOCUMENTATION CLARIFICATION FORM: POST DISCHARGE Addendum to original discharge summary date: ____ Late entry note date: __ DATE: 07/30/18 ATTN: Renata, Please exercise your independent, professional judgment in responding to the clarification form. Clinical indicators are provided on the bottom of this form for your review Please check appropriate box(s): Diabetes Type II With: [ ] Hypoglycemia [ x ] Hyperglycemia [ ] Ketoacidosis [ ] with coma [ x ] without coma Manifestation: [ x ] CKD (please stage) __3__ [ ] Other (specify) [ ] Other diagnosis [ ] Unable to determine In addition, please specify: Present on Admission (POA): [ x ] Yes [ ] No [ ] Unable to determine CLINICAL INDICATORS - SIGNS / SYMPTOMS / LABS Diabetes mellitus, type II--4/3 H&P A1C at 15---07/23 Progress note Diabetes mellitus, poorly controlled--07/23 Progress note Diabetes mellitus was up to 400 yesterday---07/25 Progress note PATI on CKD---07/27 Progress note GFR-40, Manager Leadership Development-1.32----07/25 Labs RISK FACTORS Hypertension---4/3 H&P Diabetes mellitus, type II--4/3 H&P Allergy to Lantus---4/3 H&P TREATMENTS: Will increase insulin sliding scale to high dose and add long acting; will use Levemir---07/23 Progress notes Atorvastatin at bedtime---4/3 H&P under medications Started on insulin 70/30 twice a day---07/25 Progress note Glucose monitoring--ordered 07/22 Thank you, Moriah Fuller, [facility] 11:23 AM (This form is maintained as a part of the permanent medical record) 2014 [employer] All Rights Reserved [email or web address] [phone] [email or web address]
== END 2018-07-29 19:30 | disposition home or self-care (01) | DRG 274 ==
LOC: CCL 21:24 → CCU 21:58 → 2NO 07-22 21:29 → CCU 07-25 01:09 → 2NO 07-28 14:40
PROVIDERS: ADMIT Internal Medicine Cardiovascular Disease; ATTEND Internal Medicine Cardiovascular Disease
PROC: 02703DZ Dilation of Coronary Artery, One Artery with Intraluminal Device, Percutaneous Approach (ICD-10-PCS; 2018-07-21)
PROC: 02C03ZZ Extirpation of Matter from Coronary Artery, One Artery, Percutaneous Approach (ICD-10-PCS; 2018-07-21)
PROC: 4A023N7 Measurement of Cardiac Sampling and Pressure, Left Heart, Percutaneous Approach (ICD-10-PCS; 2018-07-21)
PROC: B2111ZZ Fluoroscopy of Multiple Coronary Arteries using Low Osmolar Contrast (ICD-10-PCS; 2018-07-21)
PROC: 3E033XZ Introduction of Vasopressor into Peripheral Vein, Percutaneous Approach (ICD-10-PCS; 2018-07-21)
PROC: 02583ZZ Destruction of Conduction Mechanism, Percutaneous Approach (ICD-10-PCS; principal; 2018-07-27)
PROC: 4A023FZ Measurement of Cardiac Rhythm, Percutaneous Approach (ICD-10-PCS; 2018-07-27)
PROC: 4A0234Z Measurement of Cardiac Electrical Activity, Percutaneous Approach (ICD-10-PCS; 2018-07-27)
PROC: 02K83ZZ Map Conduction Mechanism, Percutaneous Approach (ICD-10-PCS; 2018-07-27)
DX: I21.19 ST elevation (STEMI) myocardial infarction involving other coronary artery of inferior wall (principal); I48.92 Unspecified atrial flutter; E87.1 Hypo-osmolality and hyponatremia; N17.9 Acute kidney failure, unspecified; I50.22 Chronic systolic (congestive) heart failure; E11.22 Type 2 diabetes mellitus with diabetic chronic kidney disease; I48.0 Paroxysmal atrial fibrillation; I13.0 Hypertensive heart and chronic kidney disease with heart failure and stage 1 through stage 4 chronic kidney disease, or unspecified chronic kidney disease; E11.65 Type 2 diabetes mellitus with hyperglycemia; N18.3 Chronic kidney disease, stage 3 (moderate); I25.10 Atherosclerotic heart disease of native coronary artery without angina pectoris; I49.5 Sick sinus syndrome; E78.5 Hyperlipidemia, unspecified; E87.6 Hypokalemia; I25.5 Ischemic cardiomyopathy; Z79.84 Long term (current) use of oral hypoglycemic drugs; Z79.899 Other long term (current) drug therapy; Z88.8 Allergy status to other drugs, medicaments and biological substances
CPT/HCPCS: 33210; 36415; 36416; 71045; 76942; 80048; 80053; 80061; 82436; 82553; 83036; 83735; 83880; 83930; 83935; 84133; 84300; 84439; 84443; 84484; 85025; 92941; 93005; 93010; 93306; 93454; 93613; 93621; 93623; 93653; 93798; 99152; C1725; C1730; C1732; C1757; C1769; C1876; J0153; J1160; J1265; J1644; J1815; J1825; J1940; J2270; J2405; J2704; J3010; J3490

== ENCOUNTER 2019-05-19 23:20 | Inpatient (IN) | payer MEDICAID, SELFPAY ==
[2019-05-20 02:13] LABS: Troponin I Less than 0.010 ng/mL (< 0.028)
[2019-05-20] MEDS ORDERED: Ondansetron PF 4 MG/2 ML Vial IVP PRN ×2 (03:25→07:55)
[2019-05-20] MEDS ORDERED: Ondansetron ODT 4 MG TAB SL PRN (03:25)
[2019-05-20] MEDS ORDERED: Sodium Chloride 0.9% 1,000 ML IV SCH (03:25)
[2019-05-20] MEDS ORDERED: Acetaminophen 325 MG TAB PO PRN ×2 (03:25→07:55)
[2019-05-20 03:38] VITALS: BMI 29.8
[2019-05-20 05:37] LABS: Troponin I 0.013 ng/mL (< 0.028)
[2019-05-20] MEDS ORDERED: Furosemide 40 MG TAB PO PRN (07:51)
[2019-05-20] MEDS ORDERED: Ondansetron ODT 4 MG TAB PO PRN (07:55)
[2019-05-20] MEDS ORDERED: Senokot S 8.6-50 MG TAB PO PRN (07:55)
[2019-05-20] MEDS ORDERED: Nitroglycerin 0.4 MG TAB (25 Tab Bottle) SL SCH (08:00)
[2019-05-20] MEDS ORDERED: Dextrose 50% Abboject 50 ML SYRINGE SLOW IVP PRN (08:02)
[2019-05-20] MEDS ORDERED: Dextrose 5% in Water 1,000 ML IV PRN (08:02)
[2019-05-20] MEDS ORDERED: HumaLOG 300 UNITS/3 ML VIAL SC PRN (08:02)
[2019-05-20 08:32] LABS: Troponin I 0.023 ng/mL (< 0.028)
[2019-05-20] MEDS ORDERED: Prevnar 13-Val Conj/PF 0.5 ML SYRINGE IM ONE (09:00)
[2019-05-20] MEDS: Famotidine 20 MG TAB PO SCH ×2 (10:24→21:11)
[2019-05-20] MEDS: Clopidogrel Bisulfate 75 MG TAB PO SCH (10:24)
[2019-05-20] MEDS: Heparin 5,000 UNITS/ML VIAL SC SCH ×3 (10:24→21:16)
[2019-05-20] MEDS: Aspirin Chewable 81 MG TAB PO SCH (10:24)
[2019-05-20] MEDS ORDERED: ADENOSINE 60 MG/20 ML VIAL ONE (13:12)
--- NOTE | 2019-05-20 13:53 | PDOC.HHP ---
Hospitalist HPI - History of Present Illness Chest pain History of Present Illness: 68-year-old Mexican female with past medical history of coronary artery disease with stent placement, insulin-dependent diabetes mellitus, hypertension , hyperlipidemia, and osteoarthritis presents with chest pain. Patient was transferred from [place] for higher level of care. Patient with her family who are able to aid in interpretation. Patient's family states that she has had three days of worsening midsternal chest pain with associated diaphoresis and nausea. Patient felt like she was going to pass out though there was no actual syncopal episodes. They deny radiation the pain it does not go to the arm, jaw, or any mobility to it. Patient's family at bedside requesting to see her primary vest baster Dr. Yanez. Patient admitted to medical unit with telemetry for close management. Hospitalist ROS - Review of Systems All other systems reviewed; all pertinent +/- noted in HPI/Subj - Medication Medications: Active Medications Generic Name Dose Route Start Last Admin Trade Name Freq PRN Reason Stop Dose Admin Aspirin 81 mg 05/20/19 09:00 05/20/19 10:24 Aspirin Chewable PO 81 mg DAILY RIGOBERTO Administration Clopidogrel Bisulfate 75 mg 05/20/19 09:00 05/20/19 10:24 Plavix PO 75 mg DAILY RIGOBERTO Administration Famotidine 20 mg 05/20/19 09:00 05/20/19 10:24 Pepcid PO 20 mg BID RIGOBERTO Administration Heparin Sodium (Porcine) 5,000 units 05/20/19 09:00 05/20/19 10:24 Heparin SC 5,000 units TID RIGOBERTO Administration Sodium Chloride 10 ml 05/20/19 09:00 05/20/19 10:59 Flush - Normal Saline IVF Not Given Q12HR RIGOBERTO Hospitalist History - Past Medical History Source: patient, family, old records Cardiac: reports: CAD, HTN, Hyperlipidemia Pulmonary: reports: hypertension Musculoskeletal: reports: Osteoarthritis Endocrine: reports: Diabetes - Past Surgical History Other Surgical History: Cath - Family History Family History: reports: hypertension - Social History Smoking Status: Unknown if ever smoked Alcohol: reports: None Drugs: reports: none Living Situation: With Family Domestic Violence: Negative Activity level: independent ambulation - Exam General Appearance: NAD, awake alert Eye: PERRL ENT: normocephalic atraumatic, moist mucosa Neck: supple, symmetric, no lymphadenopathy Heart: no murmur, no gallops, no rubs, normal peripheral pulses Respiratory: CTAB, no wheezes, no rales, no ronchi, normal chest expansion, no tachypnea Gastrointestinal: soft, non-tender, non-distended, no guarding, no rigidity Extremities: no edema Skin: no lesions, no rashes Neurological: cranial nerve grossly intact, no focal deficits Musculoskeletal: generalized weakness Psychiatric: normal affect, normal behavior, A&O x 3 Hospitalist Results - Labs Lab results: Troponin I 0.023 ng/mL (< 0.028) 05/20/19 07:35 - Radiology Interpretation Other Status: image reviewed by tx Hospitalist H&P A/P - Problem (1) CAD (coronary artery disease) Code(s): I25.10 - ATHSCL HEART DISEASE OF [place] CORONARY ARTERY W/O ANG PCTRS Status: Acute (2) Diabetes Code(s): E11.9 - TYPE 2 DIABETES MELLITUS WITHOUT COMPLICATIONS Status: Acute (3) Chronic systolic heart failure Code(s): I50.22 - CHRONIC SYSTOLIC (CONGESTIVE) HEART FAILURE Status: Chronic (4) Diabetes mellitus type 2 in nonobese Code(s): E11.9 - TYPE 2 DIABETES MELLITUS WITHOUT COMPLICATIONS Status: Chronic (5) Hypertension Code(s): I10 - ESSENTIAL (PRIMARY) HYPERTENSION Status: Chronic - Plan Plan: Plan: cardiology consultation, recommendations appreciated nuclear medicine stress test to rule out reversible ischemia morphine, oxygen, nitrates, aspirin long and short acting insulin for glucose control blood pressure control continuous telemetry to monitor for arrhythmia continue other home medications as able DVT prophylaxis G.I. prophylaxis
--- NOTE | 2019-05-20 16:35 | NM ---
Nuclear medicine myocardial perfusion scan: 05/20/2019 COMPARISON: None HISTORY: Shortness of breath, chest pain, history of myocardial infarction and coronary artery diseas e TECHNIQUE: SPECT imaging of the left ventricular myocardium obtained during stress and rest following the intravenous administration of 30 and 9.6mCi technetium 99 M labeled sestamibi respectively. FINDINGS: A large fixed defect is seen involving the lateral wall and inferior wall, evidence of a la rge infarction. TID is 0.92. Left ventricular wall motion is overall hypokinetic, particularly the lateral wall and inferior wall. End-diastolic volume is 122 mL and end systolic volume is 73 mL. Left ventricular ejection fraction is estimated at 40%. IMPRESSION: Large fixed defect involving the inferior wall and lateral wall consistent with a large a sunday of infarction. No definite reversible defect. Global hypokinesis with ejection fraction of 40%.
[2019-05-20] MEDS: HumuLIN 70/30 (300 UNITS/3 ML VIAL) SC SCH (17:05)
[2019-05-20] MEDS: HumaLOG 300 UNITS/3 ML VIAL SC PRN (18:25)
[2019-05-20] MEDS: Atorvastatin Calcium 40 MG TAB PO SCH (21:11)
[2019-05-20] MEDS: HYDROcodone/Acetaminophen 5/325 mg Tablet PO PRN (21:54)
--- NOTE | 2019-05-21 01:09 | CON ---
DATE OF CONSULTATION: 05/20/2019 HISTORY: Janee Shepard is a 68-year-old [place]ralt[place] female who was admitted here in July 2018, with inferolateral STEMI. She had a bare-metal stent placed in the occluded circumflex. She had very poor distal outflow. She developed atrial fibrillation and then atrial flutter. Whenever she would convert while on amiodarone and beta shauna, she would have long pauses. Temporary pacemaker was placed, and those medications were stopped. She underwent ablation of her flutter and did well afterwards. Her ejection fraction was 35% to 40%. Also, on catheterization, she was found to have multiple 70% lesions in the mid LAD and 50% lesion in the mid right coronary artery. She has been seen in the office in August 2018 and in December 2018 for followup and denied any chest discomfort. There has been thought of intervention of the LAD. However, since she has remained asymptomatic, that has not been pursued. She now was admitted with chest discomfort. Her daughter is not here at the present time to provide translation as it was a very difficult to get an accurate history. As best I can tell in talking with her, she has had pain that is worse with taking a deep breath or with sitting up in bed. When she is supine in bed, the pain is better. The pain is worse with a deep breath. PAST MEDICAL HISTORY: Hypertension, hypercholesterolemia, and diabetes. Atrial flutter ablation. MEDICATIONS: 1. Aspirin 81 daily. 2. Atorvastatin 80 at bedtime. 3. Plavix 75 daily. 4. Furosemide 40 p.r.n. 5. Humulin 70/30, 15 units b.i.d. 6. Metformin 500 b.i.d. 7. Nitroglycerin p.r.n. ALLERGIES: LANTUS. SOCIAL HISTORY: She does not smoke or drink. REVIEW OF SYSTEMS: Unobtainable with the language barrier. PHYSICAL EXAMINATION: VITAL SIGNS: Blood pressure 131/58, pulse of 70. HEENT: PERRL. NECK: Supple. CHEST: Clear. CARDIAC: S1 and S2 normal without any S3, S4, or murmurs. Carotid upstrokes normal without bruits. ABDOMEN: Normal bowel sounds without tenderness. EXTREMITIES: Revealed no clubbing, cyanosis, or edema. NEUROLOGIC: Grossly intact. SKIN: Warm and dry. MUSCULOSKELETAL: Revealed palpable anterior chest tenderness that seems to reproduce her symptoms. IMAGING STUDIES: EKG revealed normal sinus rhythm with mildly inverted T-wave in II and lead III. She underwent Lexiscan Cardiolite testing, which revealed a large fixed defect involving the inferior and lateral wall consistent with her previous infarction. There was no reversible defect. Ejection fraction was 40%. Cardiac enzymes were unremarkable. LABORATORY DATA: Hemoglobin 13.3, hematocrit 44.3, white count 11,000, and platelets 249,000. Glucose up to 410. Sodium 138, potassium 4.3, chloride 103, carbon dioxide 22, BUN 18, and creatinine 0.98. BNP 195.9. IMPRESSION: 1. Atypical chest discomfort, which apparently has been present for several days. She has palpable chest tenderness and the pain appears to be pleuritic in nature. However, this is with the disadvantage of not having a golf cart assembler present. 2. Status post inferolateral ST-segment elevation myocardial infarction in July 2018, with bare-metal stent placed in the circumflex. She also has 70% lesions in the mid left anterior descending artery and 50% mid right coronary artery stenosis. 3. Ischemic cardiomyopathy with ejection fraction of 35% to 40%. 4. Hypertension. 5. Hypercholesterolemia. 6. Diabetes. 7. History of atrial flutter ablation. PLAN: Further discussion will be held tomorrow when hopefully the daughter will be here to provide translation. Her symptoms do not appear to be cardiac in nature. Cardiolite scan is consistent with her previous infarct. However, she does have significant LAD disease and certainly may have restenosed her circumflex stent and consideration may need to be given to catheterization. Job ID: [id number] [facility]
[2019-05-21 05:20] LABS: Cardiac Risk 2.3 (Less than 4.5)
[2019-05-21] MEDS: Aspirin Chewable 81 MG TAB PO SCH (08:12)
[2019-05-21] MEDS: Famotidine 20 MG TAB PO SCH ×2 (08:12→20:14)
[2019-05-21] MEDS: Clopidogrel Bisulfate 75 MG TAB PO SCH (08:13)
[2019-05-21] MEDS: HYDROcodone/Acetaminophen 5/325 mg Tablet PO PRN (08:13)
[2019-05-21] MEDS: Heparin 5,000 UNITS/ML VIAL SC SCH ×2 (08:14→15:25)
[2019-05-21] MEDS: HumuLIN 70/30 (300 UNITS/3 ML VIAL) SC SCH ×2 (08:15→17:44)
[2019-05-21] MEDS: HumaLOG 300 UNITS/3 ML VIAL SC PRN (12:25)
[2019-05-21] MEDS ORDERED: HumaLOG 300 UNITS/3 ML VIAL SC PRN (13:00)
--- NOTE | 2019-05-21 15:44 | PDOC.HOSPP ---
- Subjective Subjective: Seen and examined. Breathing comfortably on room air. No apparent distress. It has been difficult to obtain a Nigerien video game maker. Family not at bedside, will attempt to call them on the phone again. With abnormal stress test the next plan of care would be for cardiac catheterization at some point to per cardiology. - Objective Vital Signs & Weight: Vital Signs (12 hours) Temp Pulse Resp BP Pulse Ox 05/21/19 15:38 98.5 F 61 16 103/50 L 97 05/21/19 11:39 97.4 F L 76 15 107/55 L 94 L 05/21/19 07:59 97.8 F 63 16 140/67 97 Weight Weight 140 lb 1.6 oz I&O: 05/20/19 05/21/19 05/22/19 06:59 06:59 06:59 Intake Total 600 240 Output Total 400 1000 Balance -400 -400 240 Additional Labs: Accuchecks 05/21/19 05/21/19 05/20/19 10:19 05:06 22:06 POC Glucose 234 H 224 H 109 05/20/19 05/20/19 21:16 18:12 POC Glucose 42 L* 410 H Radiology Reviewed by me: Yes Hospitalist ROS - Medication Medications: Active Medications Generic Name Dose Route Start Last Admin Trade Name Freq PRN Reason Stop Dose Admin Hydrocodone Bitart/Acetaminophen 1 tab 05/20/19 07:55 05/21/19 08:13 [place] 5/325 PO 1 tab Q4H PRN Administration Moderate Pain (4-6) Aspirin 81 mg 05/20/19 09:00 05/21/19 08:12 Aspirin Chewable PO 81 mg DAILY RIGOBERTO Administration Atorvastatin Calcium 80 mg 05/20/19 21:00 05/20/19 21:11 Lipitor PO 80 mg HS RIGOBERTO Administration Clopidogrel Bisulfate 75 mg 05/20/19 09:00 05/21/19 08:13 Plavix PO 75 mg DAILY RIGOBERTO Administration Famotidine 20 mg 05/20/19 09:00 05/21/19 08:12 Pepcid PO 20 mg BID RIGOBERTO Administration Heparin Sodium (Porcine) 5,000 units 05/20/19 09:00 05/21/19 15:25 Heparin SC 5,000 units TID RIGOBERTO Administration Insulin Human Isoph/Insulin Regular 15 units 05/20/19 16:30 05/21/19 08:15 Humulin 70/30 SC 15 unit BID-AC RIGOBERTO Administration Sodium Chloride 10 ml 05/20/19 09:00 05/21/19 08:18 Flush - Normal Saline IVF 10 ml Q12HR RIGOBERTO Administration - Exam General Appearance: NAD, awake alert Eye: PERRL ENT: normocephalic atraumatic, moist mucosa Neck: supple, symmetric, no lymphadenopathy Heart: no murmur, no gallops, no rubs, normal peripheral pulses Respiratory: CTAB, no wheezes, no rales, no ronchi, normal chest expansion, no tachypnea Gastrointestinal: soft, non-tender, no guarding, no rigidity Extremities: no edema Skin: no lesions, no rashes Neurological: cranial nerve grossly intact, no focal deficits Musculoskeletal: generalized weakness Hosp A/P (1) CAD (coronary artery disease) Code(s): I25.10 - ATHSCL HEART DISEASE OF [place] CORONARY ARTERY W/O ANG PCTRS Status: Acute (2) Diabetes Code(s): E11.9 - TYPE 2 DIABETES MELLITUS WITHOUT COMPLICATIONS Status: Acute (3) Chronic systolic heart failure Code(s): I50.22 - CHRONIC SYSTOLIC (CONGESTIVE) HEART FAILURE Status: Chronic (4) Diabetes mellitus type 2 in nonobese Code(s): E11.9 - TYPE 2 DIABETES MELLITUS WITHOUT COMPLICATIONS Status: Chronic (5) Hypertension Code(s): I10 - ESSENTIAL (PRIMARY) HYPERTENSION Status: Chronic - Plan Plan: medical unit with telemetry cardiology consultation, recommendations appreciated cardiac catheterization at some point nuclear medicine stress test reported with reversible ischemia morphine, oxygen, nitrates, aspirin long and short acting insulin for glucose control blood pressure control continuous telemetry to monitor for arrhythmia continue other home medications as able DVT prophylaxis G.I. prophylaxis
[2019-05-21] MEDS ORDERED: HumuLIN 70/30 (300 UNITS/3 ML VIAL) SC SCH (17:45)
[2019-05-21] MEDS: Naproxen 500 MG TAB PO SCH (20:13)
[2019-05-21] MEDS: Atorvastatin Calcium 40 MG TAB PO SCH (20:14)
[2019-05-22] MEDS: HYDROcodone/Acetaminophen 5/325 mg Tablet PO PRN (02:08)
[2019-05-22] MEDS: Clopidogrel Bisulfate 75 MG TAB PO SCH (09:45)
[2019-05-22] MEDS: Naproxen 500 MG TAB PO SCH ×2 (09:45→20:41)
[2019-05-22] MEDS: HumuLIN 70/30 (300 UNITS/3 ML VIAL) SC SCH ×2 (09:45→18:49)
[2019-05-22] MEDS: Aspirin Chewable 81 MG TAB PO SCH (09:45)
[2019-05-22] MEDS: Famotidine 20 MG TAB PO SCH ×2 (09:45→20:41)
--- NOTE | 2019-05-22 12:34 | PDOC.HOSPP ---
- Subjective Subjective: Seen and examined. Breathing comfortably on room air. Complaints of back pain in the lower segment from the bed. No chest pain. Planned for cardiac catheterization tomorrow. - Objective Vital Signs & Weight: Vital Signs (12 hours) Temp Pulse Resp BP Pulse Ox 05/22/19 11:01 97.7 F 70 16 116/56 L 93 L 05/22/19 07:50 97.9 F 68 18 104/55 L 94 L 05/22/19 05:03 98.2 F 63 16 107/53 L 94 L Weight Weight 141 lb 14.4 oz I&O: 05/21/19 05/22/19 05/23/19 06:59 06:59 06:59 Intake Total 600 1350 Output Total 1000 1050 Balance -400 300 Additional Labs: Accuchecks 05/22/19 05/22/19 05/22/19 11:01 05:03 00:03 POC Glucose 400 H 250 H 188 H 05/21/19 05/21/19 20:13 17:02 POC Glucose 411 H 172 H Radiology Reviewed by me: Yes Hospitalist ROS - Review of Systems All other systems reviewed; all pertinent +/- noted in HPI/Subj - Medication Medications: Active Medications Generic Name Dose Route Start Last Admin Trade Name Freq PRN Reason Stop Dose Admin Hydrocodone Bitart/Acetaminophen 1 tab 05/20/19 07:55 05/22/19 02:08 [place] 5/325 PO 1 tab Q4H PRN Administration Moderate Pain (4-6) Aspirin 81 mg 05/20/19 09:00 05/22/19 09:45 Aspirin Chewable PO 81 mg DAILY RIGOBERTO Administration Atorvastatin Calcium 80 mg 05/20/19 21:00 05/21/19 20:14 Lipitor PO 80 mg HS RIGOBERTO Administration Clopidogrel Bisulfate 75 mg 05/20/19 09:00 05/22/19 09:45 Plavix PO 75 mg DAILY RIGOBERTO Administration Famotidine 20 mg 05/20/19 09:00 05/22/19 09:45 Pepcid PO 20 mg BID RIGOBERTO Administration Insulin Human Isoph/Insulin Regular 13 units 05/22/19 07:30 05/22/19 09:45 Humulin 70/30 SC 13 unit BID-AC RIGOBERTO Administration Insulin Human Lispro 0 units 05/20/19 08:02 05/21/19 20:41 Humalog SC 5 unit .BEDTIME SLIDING SC PRN Administration Bedtime Correctional Scale Insulin Human Lispro 0 units 05/21/19 13:00 05/22/19 11:50 Humalog SC 6 unit .MILD SLIDING SCALE PRN Administration Mild Correctional Scale Naproxen 500 mg 05/21/19 21:00 05/22/19 09:45 Naprosyn PO 500 mg BID RIGOBERTO Administration Sodium Chloride 10 ml 05/20/19 09:00 05/22/19 09:45 Flush - Normal Saline IVF 10 ml Q12HR RIGOBERTO Administration - Exam General Appearance: NAD, awake alert Eye: anicteric sclera ENT: normocephalic atraumatic, moist mucosa Neck: supple, symmetric Heart: no murmur, no gallops, no rubs Respiratory: CTAB, no wheezes, no rales, no ronchi, normal chest expansion, no tachypnea Gastrointestinal: soft, non-tender, no guarding Extremities: no edema Skin: no lesions, no rashes Neurological: cranial nerve grossly intact, no focal deficits Musculoskeletal: generalized weakness Hosp A/P (1) CAD (coronary artery disease) Code(s): I25.10 - ATHSCL HEART DISEASE OF [place] CORONARY ARTERY W/O ANG PCTRS Status: Acute (2) Diabetes Code(s): E11.9 - TYPE 2 DIABETES MELLITUS WITHOUT COMPLICATIONS Status: Acute (3) Chronic systolic heart failure Code(s): I50.22 - CHRONIC SYSTOLIC (CONGESTIVE) HEART FAILURE Status: Chronic (4) Diabetes mellitus type 2 in nonobese Code(s): E11.9 - TYPE 2 DIABETES MELLITUS WITHOUT COMPLICATIONS Status: Chronic (5) Hypertension Code(s): I10 - ESSENTIAL (PRIMARY) HYPERTENSION Status: Chronic - Plan Plan: medical unit with telemetry cardiology consultation, recommendations appreciated cardiac catheterization when able nuclear medicine stress test reported with reversible ischemia morphine, oxygen, nitrates, aspirin long and short acting insulin for glucose control blood pressure control continuous telemetry to monitor for arrhythmia continue other home medications as able DVT prophylaxis G.I. prophylaxis
[2019-05-22] MEDS ORDERED: HumaLOG 300 UNITS/3 ML VIAL SC PRN (12:36)
[2019-05-22] MEDS: Atorvastatin Calcium 40 MG TAB PO SCH (20:41)
[2019-05-23] MEDS: Clopidogrel Bisulfate 75 MG TAB PO SCH (08:56)
[2019-05-23] MEDS: Famotidine 20 MG TAB PO SCH (08:56)
[2019-05-23] MEDS: Naproxen 500 MG TAB PO SCH (08:56)
[2019-05-23] MEDS: Aspirin Chewable 81 MG TAB PO SCH (08:56)
[2019-05-23] MEDS: HumuLIN 70/30 (300 UNITS/3 ML VIAL) SC SCH ×2 (08:57→17:27)
--- NOTE | 2019-05-23 09:49 | PDOC.HOSPP ---
- Subjective Encounter Date: 05/23/19 Encounter Time: 12:40 Subjective: Patient points at center of chest concerning pain. - Objective Vital Signs & Weight: Vital Signs (12 hours) Temp Pulse Resp BP Pulse Ox 05/23/19 07:44 97.7 F 60 16 129/62 94 L 05/23/19 04:29 97.9 F 66 16 149/65 H 92 L 05/22/19 23:56 97.5 F L 61 18 135/60 96 Weight Weight 142 lb I&O: 05/22/19 05/23/19 05/24/19 06:59 06:59 06:59 Intake Total 1350 1770 Output Total 1050 800 Balance 300 970 Additional Labs: Accuchecks 05/23/19 05/22/19 05/22/19 04:35 20:40 17:01 POC Glucose 227 H 210 H 181 H 05/22/19 11:01 POC Glucose 400 H Hospitalist ROS - Review of Systems Constitutional: denies: fever Respiratory: denies: cough, shortness of breath Cardiovascular: reports: chest pain Gastrointestinal: denies: vomiting - Medication Medications: Active Medications Generic Name Dose Route Start Last Admin Trade Name Freq PRN Reason Stop Dose Admin Hydrocodone Bitart/Acetaminophen 1 tab 05/20/19 07:55 05/22/19 02:08 [place] 5/325 PO 1 tab Q4H PRN Administration Moderate Pain (4-6) Aspirin 81 mg 05/20/19 09:00 05/23/19 08:56 Aspirin Chewable PO 81 mg DAILY RIGOBERTO Administration Atorvastatin Calcium 80 mg 05/20/19 21:00 05/22/19 20:41 Lipitor PO 80 mg HS RIGOBERTO Administration Clopidogrel Bisulfate 75 mg 05/20/19 09:00 05/23/19 08:56 Plavix PO 75 mg DAILY RIGOBERTO Administration Famotidine 20 mg 05/20/19 09:00 05/23/19 08:56 Pepcid PO 20 mg BID RIGOBERTO Administration Insulin Human Isoph/Insulin Regular 13 units 05/22/19 07:30 05/23/19 08:57 Humulin 70/30 SC Not Given BID-AC RIGOBERTO Insulin Human Lispro 0 units 05/20/19 08:02 05/21/19 20:41 Humalog SC 5 unit .BEDTIME SLIDING SC PRN Administration Bedtime Correctional Scale Naproxen 500 mg 05/21/19 21:00 05/23/19 08:56 Naprosyn PO 500 mg BID RIGOBERTO Administration Sodium Chloride 10 ml 05/20/19 09:00 05/23/19 08:58 Flush - Normal Saline IVF 10 ml Q12HR RIGOBERTO Administration - Exam General Appearance: NAD, awake alert ENT: moist mucosa Heart: RRR, no murmur, no gallops, no rubs Respiratory: CTAB, no wheezes, no rales, no ronchi Gastrointestinal: soft, non-tender, non-distended, normal bowel sounds Extremities: no edema Psychiatric: normal affect, normal behavior Hosp A/P (1) Chest pain, rule out acute myocardial infarction Code(s): R07.9 - CHEST PAIN, UNSPECIFIED Status: Acute (2) CAD (coronary artery disease) Code(s): I25.10 - ATHSCL HEART DISEASE OF [place] CORONARY ARTERY W/O ANG PCTRS Status: Chronic (3) Chronic systolic heart failure Code(s): I50.22 - CHRONIC SYSTOLIC (CONGESTIVE) HEART FAILURE Status: Chronic (4) Diabetes mellitus type 2 in nonobese Code(s): E11.9 - TYPE 2 DIABETES MELLITUS WITHOUT COMPLICATIONS Status: Chronic (5) Hypertension Code(s): I10 - ESSENTIAL (PRIMARY) HYPERTENSION Status: Chronic - Plan plan for cardiac catheterization today
[2019-05-23 16:22] VITALS: BP 166/70; TEMP 98.2
--- NOTE | 2019-05-23 18:27 | PDOC.CPN ---
- Subjective Date: 05/23/19 Time: 18:23 Interval history: I was able to communicate with the help of the clip baker. She has had no chest pain but a lot of lower back pain. - Review of Systems General: denies: fever/chills Respiratory: reports: cough. denies: congestion, shortness of breath, exercise intolerance Cardiovascular: reports: paroxysmal nocturnal dyspnea. denies: chest pain, palpitation, edema - Objective Allergies/Adverse Reactions: Allergies Allergy/AdvReac Type Severity Reaction Status Date / Time insulin glargine Allergy Verified 07/22/18 01:11 [From Lantus U-100 Insulin] Visit Medications: Current Medications Acetaminophen (Tylenol) 650 mg PO Q4H PRN PRN Reason: Headache/Fever/Mild Pain (1-3) Hydrocodone Bitart/Acetaminophen ([place] 5/325) 1 tab PO Q4H PRN PRN Reason: Moderate Pain (4-6) Last Admin: 05/22/19 02:08 Dose: 1 tab Aspirin (Aspirin Chewable) 81 mg PO DAILY [facility] Last Admin: 05/23/19 08:56 Dose: 81 mg Atorvastatin Calcium (Lipitor) 80 mg PO [facility] Last Admin: 05/22/19 20:41 Dose: 80 mg Clopidogrel Bisulfate (Plavix) 75 mg PO DAILY [facility] Last Admin: 05/23/19 08:56 Dose: 75 mg Dextrose/Water (Dextrose 50%) 25 gm SLOW IVP PRN PRN PRN Reason: Hypoglycemia Famotidine (Pepcid) 20 mg PO BID [facility] Last Admin: 05/23/19 08:56 Dose: 20 mg Furosemide (Lasix) 40 mg PO ASDIR PRN PRN Reason: Edema Glucagon (Glucagon) 1 mg IM PRN PRN PRN Reason: Hypoglycemia Dextrose/Water (D5w) 1,000 mls @ 0 mls/hr IV .Q0M PRN PRN Reason: Hypoglycemia Insulin Human Isoph/Insulin Regular (Humulin 70/30) 13 units SC BID-[facility] Last Admin: 05/23/19 17:27 Dose: 13 unit Insulin Human Lispro (Humalog) 0 units SC .BEDTIME SLIDING SC PRN PRN Reason: Bedtime Correctional Scale Last Admin: 05/21/19 20:41 Dose: 5 unit Insulin Human Lispro (Humalog) 0 units SC .MODERATE SLIDING SC PRN PRN Reason: Moderate Correctional Scale Naproxen (Naprosyn) 500 mg PO BID [facility] Last Admin: 05/23/19 08:56 Dose: 500 mg Nitroglycerin (Nitrostat) 0.4 mg SL ASDIR [facility] Ondansetron HCl (Zofran Odt) 4 mg PO Q6H PRN PRN Reason: Nausea/Vomiting Ondansetron HCl (Zofran) 4 mg IVP Q6H PRN PRN Reason: Nausea/Vomiting Senna/Docusate Sodium (Senokot S) 2 tab PO BID PRN PRN Reason: Constipation Sodium Chloride (Flush - Normal Saline) 10 ml IVF Q12HR [facility] Last Admin: 05/23/19 08:58 Dose: 10 ml Sodium Chloride (Flush - Normal Saline) 10 ml IVF PRN PRN PRN Reason: Saline Flush Vital Signs & Weight: Vital Signs Temp Pulse Resp BP Pulse Ox 05/23/19 15:57 98.2 F 59 L 16 166/70 H 93 L 05/23/19 10:55 97.7 F 56 L 16 135/65 94 L 05/23/19 07:44 97.7 F 60 16 129/62 94 L Weight 142 lb - Physical Exam General: appears well HEENT: normocephaly Neck: supple neck Cardiac: regular rate and rhythm Lungs: clear to auscultation Neuro: no lateralizing findings Abdomen: active bowel sounds Extremities: no edema Skin: clear Musculoskeletal: normal range of motion - Labs Troponin/CKMB Troponin I 0.023 ng/mL (< 0.028) 05/20/19 07:35 - Telemetry Sinus rhythms and dysrhythmias: sinus rhythm - Assessment/Plan Assessment/Plan: 1. Chest pain 2. CAD 3. Ischemic CM PLAN: - Her stress test showed no reversible ischemia, her pain is more musculoskeletal. - Her troponins are negative. She has residual LAD disease that would be better treated with bypass surgery but currently she is not ischemic on anterior wall. - May discharge home. I spoke with her daughter and they will follow up pin 4 wks in the office.
--- NOTE | 2019-05-24 02:07 | DIS ---
DATE OF ADMISSION: 05/20/2019 DATE OF DISCHARGE: 05/23/2019 PRIMARY CARE PHYSICIAN: Steve Sanchez. PRIMARY INTERCHANGE AGENT: Rojelio Yanez MD REASON FOR ADMISSION: Chest pain. DIAGNOSES AT DISCHARGE: 1. Chest pain. Negative for acute current myocardial infarction. 2. Coronary artery disease. 3. Chronic systolic congestive heart failure, not in exacerbation. 4. Diabetes mellitus type 2, insulin dependent. 5. Hypertension. PROCEDURES: 1. Nuclear medicine stress test showing a large fixed defect involving the inferior wall and lateral wall consistent with a large area of infarction. No definitive reversible defects. Global hypokinesis with ejection fraction of 40%. 2. Echocardiogram showing ejection fraction of 35% to 40%. CONSULTATIONS: Cardiology, Dr. Nevarez and Dr. Yanez. SUMMARY OF HOSPITAL COURSE: This is a 68-year-old [place] woman with a history of coronary artery disease with stent placement, insulin-dependent diabetes mellitus, hypertension, hyperlipidemia. She came in with chest pain, midsternal, associated with diaphoresis and nausea, felt like she has been passed out, but no syncopal episodes. The patient had negative troponins and negative EKG. She was put in observation and stress test with above results and echocardiogram done. Dr. Nevarez did evaluate the patient and then Dr. Yanez, who has seen the last hospital day. He cleared her for discharge from a cardiac standpoint. DISCHARGE MANAGEMENT: Discharged home. FOLLOWUP: Follow up with Dr. Yanez as instructed and with primary care doctor in the next 7 days. ACTIVITY: As tolerated. DIET: Diabetic diet. MEDICATIONS: 1. Naproxen as needed for pain, 1-2 tablets twice a day, 60 tablets dispensed. 2. Aspirin 81 mg daily. 3. Atorvastatin 80 mg at night. 4. Clopidogrel 75 mg daily. 5. Furosemide as needed. 6. Humulin 70/30, 15 units twice a day. 7. Nitroglycerin as needed. 8. Metformin 500 mg twice a day. TIME SPENT: Arranging the details of this discharge took 32 minutes. Job ID: [id number]
== END 2019-05-23 19:05 | disposition home or self-care (01) | DRG 313 ==
LOC: ERS 23:20 → OBSVTOIN 05-20 01:32 → 2SW 05-20 01:32
PROVIDERS: ADMIT Internal Medicine; ATTEND Internal Medicine
DX: R07.89 Other chest pain (principal); I50.22 Chronic systolic (congestive) heart failure; I25.10 Atherosclerotic heart disease of native coronary artery without angina pectoris; I11.0 Hypertensive heart disease with heart failure; E11.9 Type 2 diabetes mellitus without complications; M19.90 Unspecified osteoarthritis, unspecified site; E78.00 Pure hypercholesterolemia, unspecified; I25.5 Ischemic cardiomyopathy; E78.5 Hyperlipidemia, unspecified; Z79.4 Long term (current) use of insulin; Z95.5 Presence of coronary angioplasty implant and graft; I25.2 Old myocardial infarction
CPT/HCPCS: 36415; 36416; 78452; 80061; 84484; 93005; 93017; 93306; A9500; J0153; J1644; J1815

== ENCOUNTER 2022-03-07 05:34 | Day surgery (SDC) | payer BC ==
[2022-03-06 10:34] VITALS: BMI 29.2
[2022-03-07] MEDS ORDERED: Lidocaine 1% (PF) 30 ML VIAL ONE (06:16)
[2022-03-07] MEDS ORDERED: Heparin 10,000 UNITS/ 10 ML VIAL ONE (06:16)
[2022-03-07] MEDS ORDERED: Fentanyl 100 MCG/2 ML VIAL ONE (07:19)
[2022-03-07] MEDS ORDERED: Midazolam HCl 2 mg/2 ml Vial ONE (07:19)
[2022-03-07] MEDS ORDERED: Iopamidol 370 76% 100 ML VIAL ONE (11:11)
== END 2022-03-07 11:30 | disposition home or self-care (01) ==
LOC: CCL 05:34
PROVIDERS: ATTEND Internal Medicine Cardiovascular Disease
PROC: B2111ZZ Fluoroscopy of Multiple Coronary Arteries using Low Osmolar Contrast (ICD-10-PCS; principal; 2022-03-07)
PROC: 4A023N7 Measurement of Cardiac Sampling and Pressure, Left Heart, Percutaneous Approach (ICD-10-PCS; principal; 2022-03-07)
DX: I25.118 Atherosclerotic heart disease of native coronary artery with other forms of angina pectoris (principal); T82.855A Stenosis of coronary artery stent, initial encounter; I25.2 Old myocardial infarction; I25.5 Ischemic cardiomyopathy; E78.5 Hyperlipidemia, unspecified; E11.9 Type 2 diabetes mellitus without complications; I49.5 Sick sinus syndrome; I11.0 Hypertensive heart disease with heart failure; I50.9 Heart failure, unspecified; E66.3 Overweight; Z68.29 Body mass index [BMI] 29.0-29.9, adult; Z79.02 Long term (current) use of antithrombotics/antiplatelets; Z79.4 Long term (current) use of insulin; Z79.82 Long term (current) use of aspirin; Z79.84 Long term (current) use of oral hypoglycemic drugs; Z79.899 Other long term (current) drug therapy; Z88.8 Allergy status to other drugs, medicaments and biological substances; Y71.3 Surgical instruments, materials and cardiovascular devices (including sutures) associated with adverse incidents
CPT/HCPCS: 93005; 93010; 93458; 99152; C1769; C1894; J1644; J2001; J2250; J3010; Q9967